=== PATIENT | female | born 1960 | race Caucasian/White ===

== ENCOUNTER → 2017-10-08 | Outpatient (POV) | payer BC, SELFPAY | PROVIDERS: Family Provider Family Medicine; PCP Family Medicine; Referring Provider Family Medicine; Visit Provider Nurse Anesthetist, Certified Registered | DX: M54.16 Radiculopathy, lumbar region (principal) | CPT/HCPCS: 99212 ==

== ENCOUNTER → 2018-01-07 15:23 | Outpatient (POV) | payer BC, SELFPAY ==
[2018-01-07 15:28] VITALS: BP 138/91; PULSE 77; RESP 20; O2SAT 95; BMI 42.3
--- NOTE | 2018-01-07 15:41 | HMH.PAINSOAP ---
[facility] Pain Management SOAP Note Subjective:: Patient is a pleasant 57-year-old white female who presents today for medication refills. We are treating her for chronic low back pain secondary to degenerative disc disease of the lumbar spine. Patient is doing well on her current medical regime. Patient states that today is her last day of work and she is now going into custodial. Since she has been off work somewhat for other reasons she has had less numbness tingling in her legs. She has quit taking her Lyrica due to memory problems. She rates her pain a 3 out of 10 today and states that she has no side effects patient's urine drug screens have been appropriate in the past. Patient's Rayna reviewed and appropriate Rayna #[id number]. Objective:: Physical Exam General: Alert and oriented x3, no acute distress, pleasant and cooperative, [on room air] Lungs: Resps E/U, Symmetrical chest expansion Musculoskeletal: Flexion and extension of lumbar spine somewhat guarded secondary to pain, deep tendon reflexes normal, strength in upper and lower extremities [5/5], normal gait noted Neurological: speech clear, account collector equal, no gross sensory deficits Assessment:: Degenerative disc disease of the lumbar spine, lumbar radiculopathy Plan:: We will refill the patient's medication today we will give her 2 prescriptions of oxycodone 20 mg 1 p.o. 5 times a day. I spoke with Dr. Lewis and Dr. Lewis has reviewed the chart and agrees. We will see this patient back in 3 months. Patient's Rayna #[id number] reviewed and appropriate. Patient's UDS appropriate in the past she will go for urine drug screen today. Patient has been prescribed a controlled substance after being counseled on the medication, medication safety, and possible side effects. RAYNA report has been obtained and reviewed prior to prescription and found to be appropriate. Opioid contract was reviewed and signed by the patient, and that they have agreed to all of the terms set forth by our compliance program. This note was dictated using voice recognition software and may include errors and omissions.
--- NOTE | 2018-01-07 15:46 | P.CONS_ITS ---
[facility] Pain Management SOAP Note Subjective:: Patient is a pleasant 57-year-old white female who presents today for medication refills. We are treating her for chronic low back pain secondary to degenerative disc disease of the lumbar spine. Patient is doing well on her current medical regime. Patient states that today is her last day of work and she is now going into fpc. Since she has been off work somewhat for other reasons she has had less numbness tingling in her legs. She has quit taking her Lyrica due to memory problems. She rates her pain a 3 out of 10 today and states that she has no side effects patient's urine drug screens have been appropriate in the past. Patient's Rayna reviewed and appropriate Rayna #[id number]. Objective:: Physical Exam General: Alert and oriented x3, no acute distress, pleasant and cooperative, [ on room air] Lungs: Resps E/U, Symmetrical chest expansion Musculoskeletal: Flexion and extension of lumbar spine somewhat guarded secondary to pain, deep tendon reflexes normal, strength in upper and lower extremities [5/5], normal gait noted Neurological: speech clear, catalogue librarian equal, no gross sensory deficits Assessment:: Degenerative disc disease of the lumbar spine, lumbar radiculopathy Plan:: We will refill the patient's medication today we will give her 2 prescriptions of oxycodone 20 mg 1 p.o. 5 times a day. I spoke with Dr. Lewis and Dr. Lewis has reviewed the chart and agrees. We will see this patient back in 3 months. Patient's Rayna #[id number] reviewed and appropriate. Patient's UDS appropriate in the past she will go for urine drug screen today. Patient has been prescribed a controlled substance after being counseled on the medication, medication safety, and possible side effects. RAYNA report has been obtained and reviewed prior to prescription and found to be appropriate. Opioid contract was reviewed and signed by the patient, and that they have agreed to all of the terms set forth by our compliance program. This note was dictated using voice recognition software and may include errors and omissions.
[2018-01-07 19:25] LABS: Amphetamine/Metha Screen,Urine Negative ng/mL (<1000); Barbiturates Screen,Urine Negative ng/mL (<200); Benzodiazepines Screen,Urine Negative ng/mL (200); Cannabinoid Screen,Urine Negative ng/mL (<50); Cocaine Screen,Urine Negative ng/g (<300); Methadone Screen,Urine Negative ng/mL (<300); Opiate Screen,Urine Positive ng/mL (<300); Phencyclidine Screen,Urine Negative ng/mL (<25)
[2018-01-15 17:12] LABS: Opiates Negative (Cutoff=100); Oxycodone (GC/MS) 3210 ng/mL (Cutoff=100)
[2018-01-16 06:36] LABS: Oxymorphone (GC/MS) 3540 ng/mL (Cutoff=100)
== END ==
PROVIDERS: Family Provider Family Medicine; PCP Family Medicine; Visit Provider Clinical Nurse Specialist Family Health
DX: M54.16 Radiculopathy, lumbar region (principal); Z79.899 Other long term (current) drug therapy
CPT/HCPCS: 99212; 80305; 80361; 80365; G0480

== ENCOUNTER → 2018-01-21 12:50 | Outpatient (POV) | payer BC, SELFPAY ==
[2018-01-21 12:59] VITALS: BP 175/95; PULSE 74; RESP 20; O2SAT 94; BMI 43.0
--- NOTE | 2018-01-21 13:16 | HMH.PAINSOAP ---
[facility] Pain Management SOAP Note Subjective:: Patient is a pleasant 57-year-old white female who presents today because of increased pain. Patient was previously on Lyrica for pain secondary to degenerative disc disease of the lumbar spine with lumbar radiculopathy. However she was having some memory problems with this medication and some oversedation. Patient would like to discuss alternatives because of the increased pain after stopping her Lyrica. Patient has not tried gabapentin before. Patient is currently also being medically managed with oxycodone 20 milligrams p.o. 5 times a day. Patient's Mika #[id number] reviewed and appropriate. Patient's UDS has been appropriate in the past. Patient rates her pain a 6 out of 10 today. Patient states her pain is achy in nature. She is also having some numbness and tingling. ROS General: no recent weight change, no fever, no sleep disturbances Respiratory: no cough, no shortness of air, no recurring pulmonary infections Cardiovascular/Peripheral Vascular: No chest pain, No palpitations, no edema, no shortness of breath. Gastrointestinal: no incontinence, normal bowel movements reported Genitourinary: no incontinence Musculoskeletal: Back pain, myofascial pain Psychiatric: normal mood/ affect, Neurological: [denies weakness in extremities], [denies balance issues] Objective:: Physical Exam General: Alert and oriented x3, no acute distress, pleasant and cooperative, [on room air] Lungs: Resps E/U, Symmetrical chest expansion, Eyes: PERRL Musculoskeletal: Flexion and extension of lumbar spine somewhat guarded secondary to pain, deep tendon reflexes normal, strength in upper and lower extremities [5/5], normal gait noted Neurological: speech clear, fretted instrument inspector equal, no gross sensory deficits Assessment:: Degenerative disc disease of the lumbar spine, lumbar radiculopathy, myofascial pain Plan:: We will start the patient on gabapentin 100 mg 1 p.o. every 8 at bedtime and gradually titrate her up to 3 times a day. I did discussion about the risks and the benefits with the patient the patient Kaspar #[id number] reviewed and appropriate. Dr. Lewis has reviewed this and agrees. We will follow-up with this patient at her next medication refill. If she is doing well with no side effects we will increase her gabapentin to 300 mg 1 p.o. 3 times daily. This note was dictated using recognition software and may contain errors or omissions
--- NOTE | 2018-01-21 13:20 | P.CONS_ITS ---
[facility] Pain Management SOAP Note Subjective:: Patient is a pleasant 57-year-old white female who presents today because of increased pain. Patient was previously on Lyrica for pain secondary to degenerative disc disease of the lumbar spine with lumbar radiculopathy. However she was having some memory problems with this medication and some oversedation. Patient would like to discuss alternatives because of the increased pain after stopping her Lyrica. Patient has not tried gabapentin before. Patient is currently also being medically managed with oxycodone 20 milligrams p.o. 5 times a day. Patient's Mika #[id number] reviewed and appropriate. Patient's UDS has been appropriate in the past. Patient rates her pain a 6 out of 10 today. Patient states her pain is achy in nature. She is also having some numbness and tingling. ROS General: no recent weight change, no fever, no sleep disturbances Respiratory: no cough, no shortness of air, no recurring pulmonary infections Cardiovascular/Peripheral Vascular: No chest pain, No palpitations, no edema, no shortness of breath. Gastrointestinal: no incontinence, normal bowel movements reported Genitourinary: no incontinence Musculoskeletal: Back pain, myofascial pain Psychiatric: normal mood/ affect, Neurological: [denies weakness in extremities], [denies balance issues] Objective:: Physical Exam General: Alert and oriented x3, no acute distress, pleasant and cooperative, [ on room air] Lungs: Resps E/U, Symmetrical chest expansion, Eyes: PERRL Musculoskeletal: Flexion and extension of lumbar spine somewhat guarded secondary to pain, deep tendon reflexes normal, strength in upper and lower extremities [5/5], normal gait noted Neurological: speech clear, pattern developer equal, no gross sensory deficits Assessment:: Degenerative disc disease of the lumbar spine, lumbar radiculopathy, myofascial pain Plan:: We will start the patient on gabapentin 100 mg 1 p.o. every 8 at bedtime and gradually titrate her up to 3 times a day. I did discussion about the risks and the benefits with the patient the patient Kaspar #[id number] reviewed and appropriate. Dr. Lewis has reviewed this and agrees. We will follow-up with this patient at her next medication refill. If she is doing well with no side effects we will increase her gabapentin to 300 mg 1 p.o. 3 times daily. This note was dictated using recognition software and may contain errors or omissions
--- NOTE | 2018-01-23 08:07 | PC.PHONENOTE ---
01/21/18-called in rx for Gabapentin 100mg TID with 2 refills to pt pharmacy
--- NOTE | 2018-03-05 13:15 | PC.PHONENOTE ---
03/01/18-Gabapentin 300mg TID with 2 refills called into pt's pharmacy
== END ==
PROVIDERS: Family Provider Family Medicine; PCP Family Medicine; Visit Provider Clinical Nurse Specialist Family Health
DX: M54.16 Radiculopathy, lumbar region (principal)
CPT/HCPCS: 99212

== ENCOUNTER → 2018-04-01 09:34 | Outpatient (POV) | payer BC, SELFPAY ==
[2018-04-01 09:50] VITALS: BP 158/99; PULSE 84; RESP 20; TEMP 36.6; O2SAT 98; BMI 43.0
--- NOTE | 2018-04-01 10:18 | HMH.PAINSOAP ---
[facility] Pain Management SOAP Note Subjective:: Patient is a pleasant 57-year-old white female who presents today for medication refills. Patient is doing well on her gabapentin 300 mg 1 p.o. 3 times daily. Patient also on oxycodone 20 mg 1 p.o. 5 times a day. Patient is interested in intrathecal therapy in the future. We did discuss this some. Patient states that her gabapentin is helping her however she needs a slight increase to help her sleep at night. Patient denies any flex the medication. Patient is also having some muscle spasms. She is taking Flexeril in the past with good relief of these. She rates her pain a 6 out of 10 today. Patient's RAYNA #[id number] reviewed and appropriate. ROS General: no recent weight change, no fever, no sleep disturbances Respiratory: no cough, no shortness of air, no recurring pulmonary infections Cardiovascular/Peripheral Vascular: No chest pain, No palpitations, no edema, no shortness of breath. Gastrointestinal: no incontinence, normal bowel movements reported Genitourinary: no incontinence Musculoskeletal: Back pain, bilateral leg pain Psychiatric: normal mood/ affect, [denies depression], [denies anxiety] Neurological: [denies weakness in extremities], [denies balance issues] Objective:: Physical Exam General: Alert and oriented x3, no acute distress, pleasant and cooperative, [on room air] Lungs: Resps E/U, Symmetrical chest expansion, Eyes: PERRL Musculoskeletal: Flexion and extension of lumbar spine somewhat guarded secondary to pain, deep tendon reflexes normal, strength in upper and lower extremities [5/5], slightly antalgic gait noted Neurological: speech clear, authorization nurse equal, no gross sensory deficits Assessment:: Degenerative disc disease of lumbar spine with lumbar radiculopathy and myofascial pain syndrome Plan:: We will start the patient on gabapentin 400 mg 1 p.o. 3 times daily. We will also refill her oxycodone 20 mg 1 p.o. 5 times a day. 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 Patient's Rayna and urine drug screen both appropriate. Dr. Lewis has reviewed this chart and agrees with this plan of care. We will follow-up with the patient in 3 months. Patient has been prescribed a controlled substance after being counseled on the medication, medication safety, and possible side effects. RAYNA report has been obtained and reviewed prior to prescription and found to be appropriate. Opioid contract was reviewed and signed by the patient, and that they have agreed to all of the terms set forth by our compliance program. This note was dictated using voice recognition software and may contain errors or omissions
--- NOTE | 2018-04-01 10:21 | P.CONS_ITS ---
[facility] Pain Management SOAP Note Subjective:: Patient is a pleasant 57-year-old white female who presents today for medication refills. Patient is doing well on her gabapentin 300 mg 1 p.o. 3 times daily. Patient also on oxycodone 20 mg 1 p.o. 5 times a day. Patient is interested in intrathecal therapy in the future. We did discuss this some. Patient states that her gabapentin is helping her however she needs a slight increase to help her sleep at night. Patient denies any flex the medication. Patient is also having some muscle spasms. She is taking Flexeril in the past with good relief of these. She rates her pain a 6 out of 10 today. Patient's RAYNA #[id number] reviewed and appropriate. ROS General: no recent weight change, no fever, no sleep disturbances Respiratory: no cough, no shortness of air, no recurring pulmonary infections Cardiovascular/Peripheral Vascular: No chest pain, No palpitations, no edema, no shortness of breath. Gastrointestinal: no incontinence, normal bowel movements reported Genitourinary: no incontinence Musculoskeletal: Back pain, bilateral leg pain Psychiatric: normal mood/ affect, [denies depression], [denies anxiety] Neurological: [denies weakness in extremities], [denies balance issues] Objective:: Physical Exam General: Alert and oriented x3, no acute distress, pleasant and cooperative, [ on room air] Lungs: Resps E/U, Symmetrical chest expansion, Eyes: PERRL Musculoskeletal: Flexion and extension of lumbar spine somewhat guarded secondary to pain, deep tendon reflexes normal, strength in upper and lower extremities [5/5], slightly antalgic gait noted Neurological: speech clear, hollow handle bench worker equal, no gross sensory deficits Assessment:: Degenerative disc disease of lumbar spine with lumbar radiculopathy and myofascial pain syndrome Plan:: We will start the patient on gabapentin 400 mg 1 p.o. 3 times daily. We will also refill her oxycodone 20 mg 1 p.o. 5 times a day. 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 Patient's Rayna and urine drug screen both appropriate. Dr. Lewis has reviewed this chart and agrees with this plan of care. We will follow-up with the patient in 3 months. Patient has been prescribed a controlled substance after being counseled on the medication, medication safety, and possible side effects. RAYNA report has been obtained and reviewed prior to prescription and found to be appropriate. Opioid contract was reviewed and signed by the patient, and that they have agreed to all of the terms set forth by our compliance program. This note was dictated using voice recognition software and may contain errors or omissions
--- NOTE | 2018-04-01 16:13 | PC.PHONENOTE ---
called in Rx for Flexeril 10mg TID with 2 refills and Gabapentin 400mg TID with 2 refills.
== END ==
PROVIDERS: Family Provider Family Medicine; PCP Family Medicine; Visit Provider Clinical Nurse Specialist Family Health
DX: M54.16 Radiculopathy, lumbar region (principal); M79.1 Myalgia
CPT/HCPCS: 99212

== ENCOUNTER → 2018-07-01 09:47 | Outpatient (POV) | payer BC, SELFPAY ==
[2018-07-01 10:25] VITALS: BP 130/68; PULSE 75; RESP 18; O2SAT 98; BMI 44.4
--- NOTE | 2018-07-01 12:28 | HMH.PAINSOAP ---
[facility] Pain Management SOAP Note Subjective:: Patient is a pleasant 57-year-old white female who presents today for medication refills. Patient is currently being medically managed with oxycodone 20 mg 1 p.o. 5 times a day along with gabapentin 400 mg 1 p.o. 3 times daily. Increase her gabapentin last visit and she stated that this was beneficial. She rates her pain today a 5 out of 10. Patient's RAYNA #[id number] reviewed and appropriate. He denies side effects or medications. ROS General: no recent weight change, no fever, no sleep disturbances Respiratory: no cough, no shortness of air, no recurring pulmonary infections Cardiovascular/Peripheral Vascular: No chest pain, No palpitations, no edema, no shortness of breath. Gastrointestinal: no incontinence, normal bowel movements reported Genitourinary: no incontinence Musculoskeletal: Back pain, leg pain Psychiatric: normal mood/ affect Neurological: [denies weakness in extremities], [denies balance issues] Objective:: Physical Exam General: Alert and oriented x3, no acute distress, pleasant and cooperative, [on room air] Lungs: Resps E/U, Symmetrical chest expansion, Eyes: PERRL Musculoskeletal: Flexion and extension of lumbar spine somewhat guarded secondary to pain, deep tendon reflexes normal, strength in upper and lower extremities [5/5], slightly antalgic gait noted Neurological: speech clear, gluing machine adjuster equal, no gross sensory deficits Assessment:: degenerative disc disease lumbar spine with lumbar radiculopathy and myofascial pain syndrome Plan:: We will increase the patient's gabapentin to 600 mg 2 tabs daily. We will also refill her oxycodone 10 mg 1 p.o. 5 times a day. We will give her 2 months worth of prescriptions. 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 Patient's Rayna and urine drug screen are both appropriate. Dr. Lewis is reviewed this chart and agrees with this plan of care. We will follow-up with the patient in 3 months and that time patient would like to start a psych eval in order to discuss potentially intrathecal therapy in the future. Patient has been prescribed a controlled substance after being counseled on the medication, medication safety, and possible side effects. RAYNA report has been obtained and reviewed prior to prescription and found to be appropriate. Opioid contract was reviewed and signed by the patient, and that they have agreed to all of the terms set forth by our compliance program. This note was dictated using voice recognition software and may contain errors or omissions
--- NOTE | 2018-07-01 12:32 | P.CONS_ITS ---
[facility] Pain Management SOAP Note Subjective:: Patient is a pleasant 57-year-old white female who presents today for medication refills. Patient is currently being medically managed with oxycodone 20 mg 1 p.o. 5 times a day along with gabapentin 400 mg 1 p.o. 3 times daily. Increase her gabapentin last visit and she stated that this was beneficial. She rates her pain today a 5 out of 10. Patient's RAYNA # [id number] reviewed and appropriate. He denies side effects or medications. ROS General: no recent weight change, no fever, no sleep disturbances Respiratory: no cough, no shortness of air, no recurring pulmonary infections Cardiovascular/Peripheral Vascular: No chest pain, No palpitations, no edema, no shortness of breath. Gastrointestinal: no incontinence, normal bowel movements reported Genitourinary: no incontinence Musculoskeletal: Back pain, leg pain Psychiatric: normal mood/ affect Neurological: [denies weakness in extremities], [denies balance issues] Objective:: Physical Exam General: Alert and oriented x3, no acute distress, pleasant and cooperative, [ on room air] Lungs: Resps E/U, Symmetrical chest expansion, Eyes: PERRL Musculoskeletal: Flexion and extension of lumbar spine somewhat guarded secondary to pain, deep tendon reflexes normal, strength in upper and lower extremities [5/5], slightly antalgic gait noted Neurological: speech clear, dump grader equal, no gross sensory deficits Assessment:: degenerative disc disease lumbar spine with lumbar radiculopathy and myofascial pain syndrome Plan:: We will increase the patient's gabapentin to 600 mg 2 tabs daily. We will also refill her oxycodone 10 mg 1 p.o. 5 times a day. We will give her 2 months worth of prescriptions. 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 Patient's Rayna and urine drug screen are both appropriate. Dr. Lewis is reviewed this chart and agrees with this plan of care. We will follow-up with the patient in 3 months and that time patient would like to start a psych eval in order to discuss potentially intrathecal therapy in the future. Patient has been prescribed a controlled substance after being counseled on the medication, medication safety, and possible side effects. RAYNA report has been obtained and reviewed prior to prescription and found to be appropriate. Opioid contract was reviewed and signed by the patient, and that they have agreed to all of the terms set forth by our compliance program. This note was dictated using voice recognition software and may contain errors or omissions
[2018-07-01 13:00] LABS: Amphetamine/Metha Screen,Urine Negative ng/mL (<1000); Barbiturates Screen,Urine Negative ng/mL (<200); Benzodiazepines Screen,Urine Negative ng/mL (<200); Cannabinoid Screen,Urine Negative ng/mL (<50); Cocaine Screen,Urine Negative ng/mL (<300); Methadone Screen,Urine Negative ng/mL (<300); Opiate Screen,Urine Positive ng/mL (<300); Phencyclidine Screen,Urine Negative ng/mL (<25)
[2018-07-07 19:07] LABS: Oxycodone (GC/MS) 2438 ng/mL (Cutoff=100)
[2018-07-08 05:31] LABS: Opiates Negative (Cutoff=100); Oxymorphone (GC/MS) 2372 ng/mL (Cutoff=100)
== END ==
PROVIDERS: Family Provider Family Medicine; PCP Family Medicine; Visit Provider Clinical Nurse Specialist Family Health
DX: M79.1 Myalgia (principal); M54.16 Radiculopathy, lumbar region; Z79.899 Other long term (current) drug therapy
CPT/HCPCS: 80305; 80361; 80365; 99212; G0480

== ENCOUNTER → 2018-09-30 09:16 | Outpatient (POV) | payer BC, SELFPAY ==
--- NOTE | 2018-09-30 09:35 | HMH.PAINSOAP ---
[facility] Pain Management SOAP Note Subjective:: Patient is a pleasant 58-year-old white female who presents today for follow-up and medication refills. Patient is currently being medically managed with oxycodone 20 mg 1 p.o. 5 times a day along with gabapentin 400 mg 1 p.o. 3 times daily. Patient states that she is doing well and rates her pain a 2 out of 10. Patient's RAYNA #[id number] reviewed and appropriate. Patient would like to be seen by Dr. Richards for her psychological evaluation to determine if she is a candidate for intrathecal therapy. Patient denies side effects or medication. ROS General: no recent weight change, no fever, no sleep disturbances Respiratory: no cough, no shortness of air, no recurring pulmonary infections Cardiovascular/Peripheral Vascular: No chest pain, No palpitations, no edema, no shortness of breath. Gastrointestinal: no incontinence, normal bowel movements reported Genitourinary: no incontinence Musculoskeletal: Back pain, leg pain Psychiatric: normal mood/ affect Neurological: [denies weakness in extremities], [denies balance issues] Objective:: Physical Exam General: Alert and oriented x3, no acute distress, pleasant and cooperative, [on room air] Lungs: Resps E/U, Symmetrical chest expansion, Eyes: PERRL Musculoskeletal: Flexion and extension of lumbar spine somewhat guarded secondary to pain, deep tendon reflexes normal, strength in upper and lower extremities [5/5], slightly antalgic gait noted Neurological: speech clear, product merchandiser equal, no gross sensory deficits Assessment:: Degenerative disc disease lumbar spine with lumbar radiculopathy and myofascial pain syndrome Plan:: We will refill the patient's gabapentin 600 mg 1 tab p.o. twice daily and her oxycodone 20 mg 1 p.o. 5 times a day. We will give her 2 months worth of prescriptions. We will see her back in 2 months and reassess her symptoms at that time. Patient is doing well. Patient's Rayna and urine drug screen reviewed. Dr. Lewis is reviewed this chart and agrees with this plan of care. Patient has been prescribed a controlled substance after being counseled on the medication, medication safety, and possible side effects. RAYNA report has been obtained and reviewed prior to prescription and found to be appropriate. Opioid contract was reviewed and signed by the patient, and that they have agreed to all of the terms set forth by our compliance program. This note was dictated using voice recognition software and may contain errors or omissions
--- NOTE | 2018-09-30 09:38 | P.CONS_ITS ---
[facility] Pain Management SOAP Note Subjective:: Patient is a pleasant 58-year-old white female who presents today for follow-up and medication refills. Patient is currently being medically managed with oxycodone 20 mg 1 p.o. 5 times a day along with gabapentin 400 mg 1 p.o. 3 times daily. Patient states that she is doing well and rates her pain a 2 out of 10. Patient's RAYNA #[id number] reviewed and appropriate. Patient would like to be seen by Dr. Richards for her psychological evaluation to determine if she is a candidate for intrathecal therapy. Patient denies side effects or medication. ROS General: no recent weight change, no fever, no sleep disturbances Respiratory: no cough, no shortness of air, no recurring pulmonary infections Cardiovascular/Peripheral Vascular: No chest pain, No palpitations, no edema, no shortness of breath. Gastrointestinal: no incontinence, normal bowel movements reported Genitourinary: no incontinence Musculoskeletal: Back pain, leg pain Psychiatric: normal mood/ affect Neurological: [denies weakness in extremities], [denies balance issues] Objective:: Physical Exam General: Alert and oriented x3, no acute distress, pleasant and cooperative, [on room air] Lungs: Resps E/U, Symmetrical chest expansion, Eyes: PERRL Musculoskeletal: Flexion and extension of lumbar spine somewhat guarded secondary to pain, deep tendon reflexes normal, strength in upper and lower extremities [5/5], slightly antalgic gait noted Neurological: speech clear, assistant portfolio manager equal, no gross sensory deficits Assessment:: Degenerative disc disease lumbar spine with lumbar radiculopathy and myofascial pain syndrome Plan:: We will refill the patient's gabapentin 600 mg 1 tab p.o. twice daily and her oxycodone 20 mg 1 p.o. 5 times a day. We will give her 2 months worth of prescriptions. We will see her back in 2 months and reassess her symptoms at that time. Patient is doing well. Patient's Rayna and urine drug screen reviewed. Dr. Lewis is reviewed this chart and agrees with this plan of care. Patient has been prescribed a controlled substance after being counseled on the medication, medication safety, and possible side effects. RAYNA report has been obtained and reviewed prior to prescription and found to be appropriate. Opioid contract was reviewed and signed by the patient, and that they have agreed to all of the terms set forth by our compliance program. This note was dictated using voice recognition software and may contain errors or omissions
[2018-09-30 10:04] VITALS: BP 138/78; PULSE 82; RESP 18; O2SAT 95; BMI 43.8
== END ==
PROVIDERS: Visit Provider Clinical Nurse Specialist Family Health
DX: M51.16 Intervertebral disc disorders with radiculopathy, lumbar region (principal); M79.18 Myalgia, other site
CPT/HCPCS: 99213

== ENCOUNTER → 2018-11-11 10:45 | Outpatient (POV) | payer BC, SELFPAY ==
[2018-11-11 10:59] VITALS: BP 134/74; PULSE 89; RESP 18; O2SAT 99; BMI 43.8
--- NOTE | 2018-11-11 12:12 | P.CONS_ITS ---
[facility] Pain Management SOAP Note Subjective:: Patient is a pleasant 58-year-old white female who presents today for follow-up and medication refills. She is currently being medically managed with oxycodone 21 p.o. 5 times a day. She is also on gabapentin 600 mg 1 p.o. 3 times daily. Patient denies side effects. Patient is a good psychological candidate for intrathecal pain pump. Patient will be going away for the holidays we will begin her weaning process when she gets back. She rates her pain a 5 out of 10 today. ROS General: no recent weight change, no fever, no sleep disturbances Respiratory: no cough, no shortness of air, no recurring pulmonary infections Cardiovascular/Peripheral Vascular: No chest pain, No palpitations, no edema, no shortness of breath. Gastrointestinal: no incontinence, normal bowel movements reported Genitourinary: no incontinence Musculoskeletal: Back pain, leg pain Psychiatric: normal mood/ affect Neurological: [denies weakness in extremities], [denies balance issues] Objective:: Physical Exam General: Alert and oriented x3, no acute distress, pleasant and cooperative, [on room air] Lungs: Resps E/U, Symmetrical chest expansion, Eyes: PERRL Musculoskeletal: Flexion and extension of lumbar spine somewhat guarded secondary to pain, deep tendon reflexes normal, strength in upper and lower extremities [5/5], slightly antalgic gait noted Neurological: speech clear, physician assistant certified equal, no gross sensory deficits Assessment:: Degenerative disc disease lumbar spine with lumbar radiculopathy Plan:: We will refill her oxycodone 20 mg 1 p.o. 5 times a day and gabapentin 600 mg 1 p.o. 3 times daily. We will give her 2 months worth of prescriptions and see her back in 3 months and reassess her symptoms at that time. We will then begin to discuss a weaning process so she can move forward with her intrathecal pain pump trial. Dr. Lewis has reviewed this chart and agrees with this plan of care. Patient has been prescribed a controlled substance after being counseled on the medication, medication safety, and possible side effects. RAYNA report has been obtained and reviewed prior to prescription and found to be appropriate. Opioid contract was reviewed and signed by the patient, and that they have agreed to all of the terms set forth by our compliance program. This note was dictated using voice recognition software and may contain errors or omissions
[2018-11-11 12:36] LABS: Amphetamine/Metha Screen,Urine Negative ng/mL (<1000); Barbiturates Screen,Urine Negative ng/mL (<200); Benzodiazepines Screen,Urine Negative ng/mL (<200); Cannabinoid Screen,Urine Negative ng/mL (<50); Cocaine Screen,Urine Negative ng/mL (<300); Methadone Screen,Urine Negative ng/mL (<300); Opiate Screen,Urine Positive ng/mL (<300); Phencyclidine Screen,Urine Negative ng/mL (<25)
[2018-11-16 17:12] LABS: Oxycodone (GC/MS) >3000 ng/mL (Cutoff=100)
[2018-11-17 21:27] LABS: Opiates Negative (Cutoff=100); Oxymorphone (GC/MS) >3000 ng/mL (Cutoff=100)
== END ==
PROVIDERS: PCP Family Medicine; Visit Provider Clinical Nurse Specialist Family Health
DX: M51.16 Intervertebral disc disorders with radiculopathy, lumbar region (principal); Z79.899 Other long term (current) drug therapy
CPT/HCPCS: 80305; 80361; 80365; 99213; G0480

== ENCOUNTER → 2019-02-24 10:33 | Outpatient (POV) | payer BC, SELFPAY ==
--- NOTE | 2019-02-24 11:05 | HMH.PAINSOAP ---
[facility] Pain Management SOAP Note Subjective:: Patient is a pleasant 58-year-old white female who presents today for follow-up and medication refills. She is currently being medically managed with oxycodone 20 mg 1 p.o. 5 times a day. And gabapentin 600 mg 1 p.o. 3 times daily. She denies side effects. She rates her pain a 4 out of 10. Patient is working towards intrathecal pain pump she has been weaning herself off of her medication. She takes between 3 and 5 a day. We have a long discussion in regards to continuing weaning. ROS General: no recent weight change, no fever, no sleep disturbances Respiratory: no cough, no shortness of air, no recurring pulmonary infections Cardiovascular/Peripheral Vascular: No chest pain, No palpitations, no edema, no shortness of breath. Gastrointestinal: no incontinence, normal bowel movements reported Genitourinary: no incontinence Musculoskeletal: Back pain, leg pain Psychiatric: normal mood/ affect Neurological: [denies weakness in extremities], [denies balance issues] Objective:: Physical Exam General: Alert and oriented x3, no acute distress, pleasant and cooperative, [on room air] Lungs: Resps E/U, Symmetrical chest expansion, Eyes: PERRL Musculoskeletal: Flexion and extension of lumbar spine somewhat guarded secondary to pain, deep tendon reflexes normal, strength in upper and lower extremities [5/5], [abnormal gait noted] Neurological: speech clear, can filling machine operator equal, no gross sensory deficits Assessment:: Degenerative disc disease lumbar spine with lumbar radiculopathy Plan:: We will refill her oxycodone 20 mg 1 p.o. 5 times a day and gabapentin 600 mg 1 p.o. 3 times daily we will give her 2 months worth of prescriptions we will see her back in 2 months and reassess her symptoms at that time she is going to try to cut down on her medication and we are going to move forward from that. Patient understands she has to be off all narcotic medication 48 hours prior to her intrathecal pain pump trial. Patient has been prescribed a controlled substance after being counseled on the medication, medication safety, and possible side effects. RAYNA report has been obtained and reviewed prior to prescription and found to be appropriate. Opioid contract was reviewed and signed by the patient, and that they have agreed to all of the terms set forth by our compliance program. Dr. Bux has reviewed this note and agrees with this plan of care. This note was dictated using voice recognition software and may contain errors or omissions
[2019-02-24 13:27] VITALS: BP 146/82; PULSE 83; RESP 18; O2SAT 98; BMI 37.1
== END ==
PROVIDERS: PCP Family Medicine; Visit Provider Clinical Nurse Specialist Family Health
DX: M51.16 Intervertebral disc disorders with radiculopathy, lumbar region (principal)
CPT/HCPCS: 99213

== ENCOUNTER → 2019-04-22 11:06 | Outpatient (POV) | payer BC, SELFPAY ==
[2019-04-22 11:28] VITALS: BP 145/84; PULSE 102; RESP 18; O2SAT 98; BMI 44.3
--- NOTE | 2019-04-22 12:36 | HMH.PAINSOAP ---
[facility] Pain Management SOAP Note Subjective:: Patient is a pleasant 58-year-old white female who presents today for medication refills. She is currently being medically managed with oxycodone 20 mg 1 p.o. 5 times a day she is trying to wean down. She states she is taking 3-4 a day. Patient would like to continue being prescribed this dose and continue to wean over her summer holiday. Patient and I had a long discussion in regards to ways to handle any kind of withdrawal symptoms and to mentally prepare for this. She rates her pain today at 3 out of 10. ROS General: no recent weight change, no fever, no sleep disturbances Respiratory: no cough, no shortness of air, no recurring pulmonary infections Cardiovascular/Peripheral Vascular: No chest pain, No palpitations, no edema, no shortness of breath. Gastrointestinal: no incontinence, normal bowel movements reported Genitourinary: no incontinence Musculoskeletal: Back pain, leg pain Psychiatric: normal mood/ affect Neurological: [denies weakness in extremities], [denies balance issues] Objective:: Physical Exam General: Alert and oriented x3, no acute distress, pleasant and cooperative, [on room air] Lungs: Resps E/U, Symmetrical chest expansion, Eyes: PERRL Musculoskeletal: Flexion and extension of lumbar spine somewhat guarded secondary to pain, deep tendon reflexes normal, strength in upper and lower extremities [5/5], slightly antalgic gait noted Neurological: speech clear, magento web developer equal, no gross sensory deficits Assessment:: Degenerative disc disease lumbar spine with lumbar radiculopathy Plan:: We will refill the patient's 20 mg 1 p.o. 5 times a day and gabapentin 600 mg 1 p.o. 3 times daily we will give her 2 months worth of prescriptions and see her back in 2 months. We will reassess her symptoms at that time she is going to try to continue to wean off of her medication. Patient I will have a discussion in regards to this at her next visit. Patient has been prescribed a controlled substance after being counseled on the medication, medication safety, and possible side effects. RAYNA report has been obtained and reviewed prior to prescription and found to be appropriate. Opioid contract was reviewed and signed by the patient, and that they have agreed to all of the terms set forth by our compliance program. Dr. Lewis has reviewed this note and agrees with this plan of care. This note was dictated using voice recognition software and may contain errors or omissions
--- NOTE | 2019-04-22 12:40 | P.CONS_ITS ---
[facility] Pain Management SOAP Note Subjective:: Patient is a pleasant 58-year-old white female who presents today for medication refills. She is currently being medically managed with oxycodone 20 mg 1 p.o. 5 times a day she is trying to wean down. She states she is taking 3-4 a day. Patient would like to continue being prescribed this dose and continue to wean over her summer holiday. Patient and I had a long discussion in regards to ways to handle any kind of withdrawal symptoms and to mentally prepare for this. She rates her pain today at 3 out of 10. ROS General: no recent weight change, no fever, no sleep disturbances Respiratory: no cough, no shortness of air, no recurring pulmonary infections Cardiovascular/Peripheral Vascular: No chest pain, No palpitations, no edema, no shortness of breath. Gastrointestinal: no incontinence, normal bowel movements reported Genitourinary: no incontinence Musculoskeletal: Back pain, leg pain Psychiatric: normal mood/ affect Neurological: [denies weakness in extremities], [denies balance issues] Objective:: Physical Exam General: Alert and oriented x3, no acute distress, pleasant and cooperative, [on room air] Lungs: Resps E/U, Symmetrical chest expansion, Eyes: PERRL Musculoskeletal: Flexion and extension of lumbar spine somewhat guarded se condary to pain, deep tendon reflexes normal, strength in upper and lower extremities [5/5], slightly antalgic gait noted Neurological: speech clear, insurance advisor equal, no gross sensory deficits Assessment:: Degenerative disc disease lumbar spine with lumbar radiculopathy Plan:: We will refill the patient's 20 mg 1 p.o. 5 times a day and gabapentin 600 mg 1 p.o. 3 times daily we will give her 2 months worth of prescriptions and see her back in 2 months. We will reassess her symptoms at that time she is going to try to continue to wean off of her medication. Patient I will have a discussion in regards to this at her next visit. Patient has been prescribed a controlled substance after being counseled on the medication, medication safety, and possible side effects. RAYNA report has been obtained and reviewed prior to prescription and found to be appropriate. Opioid contract was reviewed and signed by the patient, and that they have agreed to all of the terms set forth by our compliance program. Dr. Lewis has reviewed this note and agrees with this plan of care. This note was dictated using voice recognition software and may contain errors or omissions
[2019-04-22 13:08] LABS: Amphetamine/Metha Screen,Urine Negative ng/mL (<1000); Barbiturates Screen,Urine Negative ng/mL (<200); Benzodiazepines Screen,Urine Negative ng/mL (<200); Cannabinoid Screen,Urine Negative ng/mL (<50); Cocaine Screen,Urine Negative ng/mL (<300); Methadone Screen,Urine Negative ng/mL (<300); Opiate Screen,Urine Positive ng/mL (<300); Phencyclidine Screen,Urine Negative ng/mL (<25)
[2019-04-27 12:07] LABS: Oxycodone (GC/MS) >3000 ng/mL (Cutoff=100)
[2019-04-27 17:08] LABS: Opiates Negative (Cutoff=100); Oxymorphone (GC/MS) >3000 ng/mL (Cutoff=100)
== END ==
PROVIDERS: PCP Family Medicine; Visit Provider Clinical Nurse Specialist Family Health
DX: M51.16 Intervertebral disc disorders with radiculopathy, lumbar region (principal); Z79.899 Other long term (current) drug therapy
CPT/HCPCS: 80305; 80361; 80365; 99212; G0480

== ENCOUNTER → 2019-08-05 08:57 | Outpatient (POV) | payer BC, SELFPAY ==
[2019-08-05 09:07] VITALS: BP 149/98; PULSE 81; RESP 18; O2SAT 98; BMI 45.6
--- NOTE | 2019-08-05 12:32 | HMH.PAINSOAP ---
[facility] Pain Management SOAP Note Subjective:: Patient is a very pleasant 58-year-old white female who presents today for medication refills. She is currently being medically managed with oxycodone 20 mg 1 p.o. 5 times a day. She is trying to wean down she takes about 3-4 a day however recently she has had more pain with her trip to [place]. Patient rates her pain a 2 out of 10 today. She denies side effects or medications. Rayna #[id number] reviewed and appropriate. Urine drug screens have been appropriate. ROS General: no recent weight change, no fever, no sleep disturbances Respiratory: no cough, no shortness of air, no recurring pulmonary infections Cardiovascular/Peripheral Vascular: No chest pain, No palpitations, no edema, no shortness of breath. Gastrointestinal: no incontinence, normal bowel movements reported Genitourinary: no incontinence Musculoskeletal: Back pain, leg pain Psychiatric: normal mood/ affect, [denies depression], [denies anxiety] Neurological: [denies weakness in extremities], [denies balance issues] Objective:: Physical Exam General: Alert and oriented x3, no acute distress, pleasant and cooperative, [on room air] Lungs: Resps E/U, Symmetrical chest expansion, [CTA bilateral] Eyes: PERRL Musculoskeletal: Flexion and extension of lumbar spine somewhat guarded secondary to pain, deep tendon reflexes normal, strength in upper and lower extremities [5/5], slightly antalgic gait noted Neurological: speech clear, admin dir equal, no gross sensory deficits Assessment:: Degenerative disc disease lumbar spine with lumbar radiculopathy Plan:: We will refill the patient's oxycodone 20 mg 1 tab p.o. 5 times a day and gabapentin 600 mg 1 p.o. 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 She is been instructed to call the office if she has any issues prior to her next appointment. Patient has been prescribed a controlled substance after being counseled on the medication, medication safety, and possible side effects. RAYNA report has been obtained and reviewed prior to prescription and found to be appropriate. Opioid contract was reviewed and signed by the patient, and that they have agreed to all of the terms set forth by our compliance program. Dr. Lewis has reviewed this note and agrees with this plan of care. This note was dictated using voice recognition software and may contain errors or omissions Pain Management Hx Components *Have you ever received a pneumonia vaccine?: No *Have you received a flu vaccine this season?: No - *Social History *Occupational Status:: other *Travel in the last 8 weeks: None
--- NOTE | 2019-08-12 15:05 | PC.NURSE ---
gabapentin 600mg po tid with 1 refill faxed to clinic pharmacy per provider
== END ==
PROVIDERS: PCP Family Medicine; Visit Provider Clinical Nurse Specialist Family Health
DX: M51.16 Intervertebral disc disorders with radiculopathy, lumbar region (principal)
CPT/HCPCS: 99212

== ENCOUNTER → 2019-08-27 14:46 | Outpatient (CLI) | payer BC, SELFPAY ==
[2019-08-27 17:00] LABS: Amphetamine/Metha Screen,Urine Negative ng/mL (<1000); Barbiturates Screen,Urine Negative ng/mL (<200); Benzodiazepines Screen,Urine Negative ng/mL (<200); Cannabinoid Screen,Urine Negative ng/mL (<50); Cocaine Screen,Urine Negative ng/mL (<300); Methadone Screen,Urine Negative ng/mL (<300); Opiate Screen,Urine Positive ng/mL (<300); Phencyclidine Screen,Urine Negative ng/mL (<25)
[2019-09-01 22:16] LABS: Oxycodone (GC/MS) >3000 ng/mL (Cutoff=100)
[2019-09-02 07:13] LABS: Opiates Negative (Cutoff=100); Oxymorphone (GC/MS) 2997 ng/mL (Cutoff=100)
== END ==
PROVIDERS: Visit Provider Clinical Nurse Specialist Family Health
DX: Z79.899 Other long term (current) drug therapy (principal)
CPT/HCPCS: 80305; 80361; 80365; G0480

== ENCOUNTER → 2019-11-20 09:02 | Outpatient (POV) | payer BC, SELFPAY ==
[2019-11-20 09:12] VITALS: BP 132/74; PULSE 85; RESP 18; O2SAT 99; BMI 43.0
--- NOTE | 2019-11-20 10:16 | P.CONS_ITS ---
[facility] Pain Management SOAP Note Subjective:: Patient is a pleasant 59-year-old white female who presents today for medication refills. She is being treated for low back pain with lumbar radiculopathy symptoms. Patient is currently managed with oxycodone 20 mg 1 tablet p.o. 5 times daily, as well as gabapentin 600 mg 1 tablet p.o. 3 times daily. She denies any side effects to her medications. Patient's Rayna #[id number] has been reviewed and is appropriate. Her urine drug screens have been appropriate. She denies any side effects to the medications. She says she gets approximately 80% with her relief medication regimen. She is continuing with anti-inflammatories and a home stretching program. The patient is requesting to get her medications filled early. 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 Also asking for Flexeril 10 mg 1 tablet p.o. 3 times daily. Patient says that she intermittently takes muscle relaxers. Review of Systems General: No recent weight changes, no fever, no sleep disturbances Respiratory: No cough, no shortness of air, no recurring pulmonary infections Cardiovascular/peripheral vascular: No chest pain, no palpitations, no edema, no shortness of breath Gastrointestinal: No new onset incontinence, normal bowel movements reported Genitourinary: No new onset incontinence Musculoskeletal: Low back pain Psychiatric: Normal mood/affect Neurological: [Denies weakness in extremities], [denies balance issues] Objective:: Physical exam General: Alert and oriented x3, no acute distress, pleasant and cooperative, [on room air] Lungs: Respirations even and unlabored, symmetrical chest expansion Eyes: PERRL Musculoskeletal: Flexion and extension of lumbar spine somewhat guarded secondary to pain, deep tendon reflexes normal, strength in upper and lower extremities [5/5], [abnormal gait noted] Neurological: Speech clear, service developer equal, no gross sensory deficit Assessment:: Degenerative disc disease lumbar spine with lumbar radiculopathy symptoms Plan:: Patient can plan to picked edge sewing machine 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 We will have her oxycodone 20 mg 1 tablet p.o. 5 times daily, gabapentin 600 mg 1 tablet p.o. 3 times daily, as well as Flexeril 10 mg 1 tablet p.o. 3 times daily. We will see her back in the clinic in 3 months to reassess her symptoms. Patient has been instructed to contact the clinic if she has any concerns before her next appointment. Dr. Lewis has reviewed this note and agrees with this plan of care. This note was dictated using voice recognition software and make contain errors or omissions. Patient has been prescribed a controlled substance after being counseled on the medication, medication safety, and possible side effects. RAYNA report has been obtained and reviewed prior to prescription and found to be appropriate. Opioid contract was reviewed and signed by the patient, and that they have agreed to all of the terms set forth by our compliance program. [facility] History I have reviewed the patient's past medical history: Yes *Have you ever received a pneumonia vaccine?: Yes *Have you received a flu vaccine this season?: Yes - *Social History *Occupational Status:: other *Travel in the last 8 weeks: None Family Hx:: Unable to obtain
== END ==
PROVIDERS: PCP Family Medicine; Visit Provider Clinical Nurse Specialist Family Health
DX: M51.16 Intervertebral disc disorders with radiculopathy, lumbar region (principal)
CPT/HCPCS: 99212

== ENCOUNTER → 2020-03-15 10:46 | Outpatient (POV) | payer BC, SELFPAY ==
--- NOTE | 2020-03-15 11:21 | HMH.VVPMSO ---
[facility] PM Virtual Visit SOAP Consent for virtual visit:: With the recent concerns about the COVID-19, we are trying to minimize exposure to you by shifting to telehealth appointments whenever possible. It restricts me from seeing you in person, but the trade off is protecting you during this pandemic. Can you see and hear me okay, and do you consent to this option? If not, I would be happy to see if we can reschedule your appointment in the future, when feasible. Has patient consented to this virtual visit?: Yes Subjective:: Patient is a pleasant 59-year-old white female who presents today for medication refills. She is being treated for low back pain with lumbar radiculopathy symptoms. She is currently managed with oxycodone 20 mg 1 tab p.o. 5 times a day as well as gabapentin 6 mg 1 p.o. 3 times daily. She denies side effects from medication. [facility] #[id number] reviewed and appropriate. Urine drug screens are appropriate. She states that it is not as beneficial as it used to be. She does take Flexeril at times. ROS General: no recent weight change, no fever, no sleep disturbances Respiratory: no cough, no shortness of air, no recurring pulmonary infections Cardiovascular/Peripheral Vascular: No chest pain, No palpitations, no edema, no shortness of breath. Gastrointestinal: no new onset incontinence, normal bowel movements reported Genitourinary: no new onset incontinence Musculoskeletal: Back pain, leg pain Psychiatric: normal mood/ affect Neurological: [denies new onset weakness in extremities], [denies new onset balance issues] Objective:: Physical exam: Constitutional: Healthy appearing, well-developed, alert, in no acute distress Psychiatric: Judgment and insight intact, Alert and oriented x4 Mood and affect: Mood normal, affect appropriate Head and face: Inspection: Normocephalic atraumatic, extraocular movement intact Respiratory: Breathing nonlabored, nondyspneic Cardiovascular: No cyanosis, clubbing, or edema observed Skin: Head and neck: Skin with no lesions or rash observed Gait: Able to walk without assistive device: Able to heel and toe walk Neurologic: Sensation grossly intact per patient Musculoskeletal: She has decreased range of motion of lumbar spine noted on the video conference. Assessment:: Degenerative disc disease lumbar spine with lumbar radiculopathy Plan:: We will refill her oxycodone 20 mg 1 tab by mouth 5 times a day and gabapentin 60 mg 1 p.o. 3 times daily we will see the patient back in 2 months reassess her symptoms that time she is been instructed to call the office if she has any issues prior to her next appointment. This encounter was performed as a telemedicine visit via secure 2 way video and audio to minimize risk and transmission of Covid-19. The patient and we understand the limitations of a telemedicine visit including inability to check reflexes, possibly missing subtle findings on physical exam. Alternative options were presented to the patient and the patient elected to proceed with the visit. We specifically discussed risk factors for Covid-19 including age, heart or lung disease, diabetes, immunosuppression and travel. We also discussed that NSAIDs may worsen Covid-19 infection symptoms and that they should not be used to treat Covid-19 symptoms. Patient was also informed that corticosteroids in any form oral or injectable will decrease immune response and may increase risk of Covid-[address] Lewis has reviewed this patient's chart and this note and agrees with plan of care. Patient has been instructed to call the office if they have any issues prior to the next appointment. Patient has been prescribed a controlled substance after being counseled on the medication, medication safety, and possible side effects. RAYNA report has been obtained and reviewed prior to prescription and found to be appropriate. Opioid contract was reviewed and signed by the patient, and
== END ==
PROVIDERS: Visit Provider Clinical Nurse Specialist Family Health
DX: M51.16 Intervertebral disc disorders with radiculopathy, lumbar region (principal)
CPT/HCPCS: 99212

== ENCOUNTER → 2020-06-18 10:17 | Outpatient (POV) | payer BC, SELFPAY ==
[2020-06-18 10:29] VITALS: BP 154/76; PULSE 86; RESP 18; TEMP 36.6; O2SAT 94; BMI 45.4
--- NOTE | 2020-06-18 11:08 | HMH.PAINSOAP ---
[facility] Pain Management SOAP Note Subjective:: This patient is a pleasant 89-year-old white female who we have been treating for low back pain with lumbar colopathy symptoms. She currently has increasing back pain and leg pain and she is medically managed on oxycodone 20 mg 5 times a day as well as gabapentin 600 mg 3 times a day. Her Mika and urine drug screen are all appropriate Mika [id number]. Overall she has been doing well with her medications however they have not been lasting as long. She would like to talk about pursuing intrathecal therapy. We will need a slow wean off of her oral medications and psychological evaluation prior to intrathecal pump trial. Objective:: Alert and oriented x3 no acute distress. Patient does have an antalgic gait. Motor strength of the upper and lower extremities is 5/5. There is no gross sensory deficit. 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 We will reevaluate her symptoms and we will talk about starting a wean for preparation of intrathecal pump trial. Again she will need a slow wean off of her oral narcotics and psychological evaluation prior to pump trial. We will refill her oxycodone 20 mg 5 times a day and gabapentin 600 mg 3 times a day today. I will give her 1 month supply for both. [facility] History *Have you ever received a pneumonia vaccine?: No *Have you received a flu vaccine this season?: Yes - *Social History *Occupational Status:: retired *Travel in the last 8 weeks: None Family Hx:: Unable to obtain
== END ==
PROVIDERS: Visit Provider Anesthesiology
DX: M51.16 Intervertebral disc disorders with radiculopathy, lumbar region (principal)
CPT/HCPCS: 99212

== ENCOUNTER → 2020-07-12 09:22 | Outpatient (POV) | payer BC, SELFPAY ==
[2020-07-12 09:45] VITALS: BP 143/78; PULSE 85; RESP 18; O2SAT 99; BMI 43.8
--- NOTE | 2020-07-12 12:46 | HMH.PAINSOAP ---
[facility] Pain Management SOAP Note Subjective:: Patient is a 59-year-old white female who we are treating for low back pain with lumbar radiculopathy symptoms. She is currently medically managed with oxycodone 20 mg 5 times a day. As well as gabapentin 600 mg 1 p.o. 3 times daily. Her Rayna and urine drug screens are appropriate Rayna #[phone] [id number] reviewed. Overall she is not doing great with her medication. She states that it is not as beneficial and she is aware that she is addicted to her medications. Patient and I discussed potential bupivacaine pump trial to see if this would benefit her in her weaning off of her oral narcotic medications. I discussed with her with her morphine equivalent of 150 that this is too high and we will have to begin to wean her. Patient is quite worried about this. She rates her pain today a 5 out of 10. ROS General: no recent weight change, no fever, no sleep disturbances Respiratory: no cough, no shortness of air, no recurring pulmonary infections Cardiovascular/Peripheral Vascular: No chest pain, No palpitations, no edema, no shortness of breath. Gastrointestinal: no new onset incontinence, normal bowel movements reported Genitourinary: no new onset incontinence Musculoskeletal: Back pain Psychiatric: normal mood/ affect Neurological: [denies new onset weakness in extremities], [denies new onset balance issues] Objective:: Physical Exam General: Alert and oriented x3, no acute distress, pleasant and cooperative, [on room air] Lungs: Resps E/U, Symmetrical chest expansion, Eyes: PERRL Musculoskeletal: Flexion and extension of lumbar spine somewhat guarded secondary to pain, deep tendon reflexes normal, strength in upper and lower extremities [5/5], antalgic gait noted Neurological: speech clear, armor reconnaissance specialist equal, no gross sensory deficits Assessment:: Degenerative disc disease lumbar spine lumbar radiculopathy Plan:: We will schedule her for a bupivacaine intrathecal pain pump trial. We will begin weaning her as soon as possible. Patient has had a psychological evaluation for intrathecal pain pump. We will continue at this time her oxycodone 20 mg 1 p.o. 5 times a day and gabapentin 600 mg 1 p.o. 3 times daily. I will follow-up with her after her trial reassess her symptoms at that time she has been instructed to call the office if she has any issues prior to her next appointment. Dr. Lewis has reviewed this note and agrees with this plan of care. This note was dictated using voice recognition software and may contain errors or omissions Patient has been prescribed a controlled substance after being counseled on the medication, medication safety, and possible side effects. RAYNA report has been obtained and reviewed prior to prescription and found to be appropriate. Opioid contract was reviewed and signed by the patient, and that they have agreed to all of the terms set forth by our compliance program. [facility] History I have reviewed the patient's past medical history: Yes *Have you ever received a pneumonia vaccine?: Yes *Have you received a flu vaccine this season?: Yes - *Social History *Occupational Status:: other *Travel in the last 8 weeks: None Family Hx:: Unable to obtain
== END ==
PROVIDERS: PCP Family Medicine; Visit Provider Clinical Nurse Specialist Family Health
DX: M51.16 Intervertebral disc disorders with radiculopathy, lumbar region (principal)
CPT/HCPCS: 99212

== ENCOUNTER → 2020-08-06 08:14 | Day surgery (SDC) | payer BC, SELFPAY ==
[2020-08-06] VITALS (9 sets, daily range): BP systolic 108–172; BP diastolic 66–93; PULSE 62–96; RESP 18–21; TEMP 36.7; O2SAT 95–97; BMI 45.4
--- NOTE | 2020-08-06 09:16 | HMH.PMPROC ---
- Procedure Date: 08/06/20 Time: 09:18 Anesthesiologist:: Albino Lewis MD Complications:: None Pre-procedure Diagnosis:: Degenerative disc disease of lumbar spine with lumbar radiculopathy symptoms Post-procedure Diagnosis:: Same Indications for Procedure:: This patient is a pleasant 59-year-old white female who we are treating for low back pain with lumbar radiculopathy symptoms. She is currently managed with oxycodone 20 mg 5 times a day. She is also on gabapentin 600 mg 3 times a day. She has trouble weaning off her medications. She has morphine equivalent 150. It was thought that she may be able to start weaning her medications if she got some relief through intrathecal therapy. We will do a intrathecal bupivacaine pain pump trial today to see if this will give her some of this relief. She did take a oxycodone this morning at 6 AM. Her pain score right now is a 3 out of 10. I have told her to try to stay off of her oxycodone the rest of the day and see if she has adequate pain relief and increased functionality after this bupivacaine pain pump trial. Her Mika and urine drug screen are appropriate. She has an antalgic gait. Motor strength of the lower extremities is 5/5 with no gross sensory deficit. Procedure Details:: Pain pump trial Informed consent was obtained and the risk and benefits of the procedure was explained to the patient. The patient was taken to the procedure room and placed prone on the procedure table. Patient was prepped and draped in sterile fashion. C-arm fluoroscopy was used to view the lumbar spine. The skin and subcutaneous tissues were anesthetized using lidocaine. I placed a 18-gauge spinal needle into the L4-5 interspace and advanced until clear CSF was obtained. After this intrathecal catheter was inserted and advanced very easily to the L1 vertebral body. The needle was withdrawn. We were able to freely withdraw clear CSF through the catheter. We then injected intrathecal bupivacaine 3 mg single shot bolus followed by saline and followed by the previous CSF that was withdrawn. The needle and catheter were then removed and a Band-Aid was placed. Patient tolerated the procedure well with no complications. We reevaluated the patient after 30 minutes to 1 hour. She was also reassessed by physical therapy. Patient had 90 to 100% relief of her pain symptoms. Pain score is down to a 0-1 out of 10. She was numb. This did help significantly with her pain symptoms. I have told her to go home and be active and keep from taking her pain medication. We want to see if this allows her to increase her functionality and do things he wants to do and continue to give her adequate pain relief. This seems to be a successful pain pump trial. Right now she has no pain symptoms in her normal areas of pain. Plan and Disposition:: We will follow-up with her on Sunday. We will reevaluate her symptoms to see if this is helped. I told her to try to decrease her pain medication and refrain from taking it if she does not have any pain. I told her that we need to have her down to oxycodone 20 mg 2 to maybe 3 times daily prior to pain pump implant. We will plan on implanting her with intrathecal bupivacaine 5 mg/mL to start at 2.5 mg/day until she is completely off her oxycodone. We will reevaluate her symptoms and assess efficacy again of this pain pump trial at this follow-up visit.
--- NOTE | 2020-08-06 11:33 | PC.NURSE ---
0920-pt returned to [facility] via w/c accompanied by nursing staff. pt reports no pain. states legs are numb unable to move legs at this time. VSS, no c/o pain. at bedside. no needs at this time. 0935-pt resting in w/c. legs remain numb, unable to move legs. no c/o pain. VSS. tolerating PO intake. no needs or concerns at this time. 0950-VSS, no c/o pain. pt resting in chair. states able to feel legs but is unable to move them at this time. no needs or concerns at this time 1005-vss, no /co pain. pt resting. remains at beside. no needs at this time 1020-Vss, no c/o pain. pt states she feels her legs. states she is able to bear weight. pt assisted to reclining chair. weakness observed. 1030-Dr. Lewis at bedside, disussing POC
== END ==
PROVIDERS: PCP Family Medicine; Visit Provider Anesthesiology
DX: M51.16 Intervertebral disc disorders with radiculopathy, lumbar region (principal); K21.9 Gastro-esophageal reflux disease without esophagitis; E66.9 Obesity, unspecified; F32.9 Major depressive disorder, single episode, unspecified; Z90.89 Acquired absence of other organs; Z90.49 Acquired absence of other specified parts of digestive tract; Z98.84 Bariatric surgery status; Z90.711 Acquired absence of uterus with remaining cervical stump; Z88.5 Allergy status to narcotic agent; Z79.82 Long term (current) use of aspirin; Z79.899 Other long term (current) drug therapy; Z79.891 Long term (current) use of opiate analgesic
CPT/HCPCS: 62323; 96365

== ENCOUNTER → 2020-08-09 08:35 | Outpatient (POV) | payer BC, SELFPAY ==
[2020-08-09 08:37] VITALS: BP 125/57; PULSE 85; RESP 18; TEMP 36.4; O2SAT 99; BMI 45.4
--- NOTE | 2020-08-09 09:41 | P.CONS_ITS ---
[facility] Pain Management SOAP Note Subjective:: Pleasant 59-year-old white female who we are treating for low back pain with lumbar radiculopathy symptoms. She is currently medically managed with oxycodone 20 mg 1 p.o. 5 times a day. She had a bupivacaine pain pump trial. Patient did extremely well stating she got relief of her symptomology. And it lasted part of the day. And to wean off of her oxycodone down to 3 times a day. She rates her pain a 2 out of 10 today. Patient and I had a long discussion in regards to continuing to wean. She would like to do it as quickly as possible. She has had an appropriate psychological evaluation. She has some decreasing but she also understands that it is necessary. She is currently on a morphine equivalent of 150 mg. [facility] #[id number] reviewed and appropriate. ROS General: no recent weight change, no fever, no sleep disturbances Respiratory: no cough, no shortness of air, no recurring pulmonary infections Cardiovascular/Peripheral Vascular: No chest pain, No palpitations, no edema, no shortness of breath. Gastrointestinal: no new onset incontinence, normal bowel movements reported Genitourinary: no new onset incontinence Musculoskeletal: Back pain, Leg pain Psychiatric: normal mood/ affect Neurological: [denies new onset weakness in extremities], [denies new onset balance issues] Objective:: Physical Exam General: Alert and oriented x3, no acute distress, pleasant and cooperative, [on room air] Lungs: Resps E/U, Symmetrical chest expansion, Eyes: PERRL Musculoskeletal: Flexion and extension of lumbar spine somewhat guarded secondary to pain, deep tendon reflexes normal, strength in upper and lower extremities [5/5], slightly antalgic gait noted Neurological: speech clear, systems engineering manager equal, no gross sensory deficits Assessment:: Degenerative disc disease lumbar spine lumbar radiculopathy Plan:: We will decrease the patient down to oxycodone 20 mg 1 p.o. 3 times a day. She is to try this for a week and then begin to wean to 2 a day. Patient is not due medication at this time. We will also put her on clonidine 0.05 mg 1 p.o. twice daily to help with this decrease. We will follow-up with her in 2 weeks and see how she is doing with her wean. We will make decisions moving forward after this. Dr. Lewis has reviewed this note and agrees with this plan of care. This note was dictated using voice recognition software and may contain errors or omissions [facility] History I have reviewed the patient's past medical history: Yes Medical History: Denies:: Cancer, Diabetes Mellitus Type 1, Diabetes Mellitus Type 2, MRSA, Seizures *Have you ever received a pneumonia vaccine?: Yes *Have you received a flu vaccine this season?: Yes Laterality Cases: Bilateral: Tonsillectomy Other Surgeries: Yes: Bariatric Surgery, Cholecystectomy, Hysterectomy-Partial Amputation: No Fractures: No - *Social History Alcohol Intake: never *Occupational Status:: other Housing: house Household Members: spouse *Travel in the last 8 weeks: None Family Hx:: Unable to obtain
--- NOTE | 2020-08-24 09:51 | PC.NURSE ---
called in Rx for Valium 10mg PO x1 per MD order.
== END ==
PROVIDERS: PCP Family Medicine; Visit Provider Clinical Nurse Specialist Family Health
DX: M51.16 Intervertebral disc disorders with radiculopathy, lumbar region (principal)
CPT/HCPCS: 99212

== ENCOUNTER → 2020-08-27 12:23 | Outpatient (POV) | payer BC, SELFPAY ==
[2020-08-27 12:36] VITALS: BP 140/78; PULSE 72; RESP 20; TEMP 36.5; O2SAT 95; BMI 45.4
--- NOTE | 2020-08-27 13:07 | P.CONS_ITS ---
[facility] Pain Management SOAP Note Subjective:: Patient is a pleasant 59-year-old white female who we have been treating for low back pain with lumbar radiculopathy symptoms. She is weaning down on her oxycodone 20 mg 5 times a day. She is now down to 3 times a day. We will continue to wean her down prior to permanent placement of her intrathecal pain pump. I have told her to wean down to 2 a day and then the week prior to her pump placement to 1 a day. Objective:: Alert and oriented x3 no acute distress. Patient does have an antalgic gait. Motor strength of lower extremities is 5/5. There is no gross sensory deficit. Assessment:: Degenerative disc disease of lumbar spine with lumbar radiculopathy symptoms Plan:: I talked the patient about further weaning her oxycodone 20 mg to 2 a day for 1 week and then the week prior to her pump implant to oxycodone 20 mg once a day. She is to be completely off 48 hours prior to her implant. We will plan on her permanent placement of her intrathecal pain pump on September 15. This will be with intrathecal bupivacaine 5 mg/mL to start at 2.5 mg/day. Catheter tip will be at the L1 vertebral body. [facility] History Medical History: Denies:: Cancer, Diabetes Mellitus Type 1, Diabetes Mellitus Type 2, MRSA, Seizures *Have you ever received a pneumonia vaccine?: No *Have you received a flu vaccine this season?: No Laterality Cases: Bilateral: Tonsillectomy Other Surgeries: Yes: Bariatric Surgery, Cholecystectomy, Hysterectomy-Partial Amputation: No Fractures: No - *Social History Alcohol Intake: never *Occupational Status:: unemployed Housing: house Household Members: spouse *Travel in the last 8 weeks: None Family Hx:: Unable to obtain
== END ==
PROVIDERS: PCP Family Medicine; Visit Provider Anesthesiology
DX: M51.16 Intervertebral disc disorders with radiculopathy, lumbar region (principal)
CPT/HCPCS: 99212

== ENCOUNTER → 2020-09-14 16:47 | Outpatient (CLI) | payer BC, SELFPAY ==
[2020-09-14 17:48] LABS: Basophils # 0.1 K/mm3 (0-0.2); Basophils % 0.7 % (0.1-2.0); Eosinophils # 0.3 K/mm3 (0.0-0.4); Eosinophils % 4.4 % (0.1-12.0); Hematocrit 39.8 % (37.0-47.0); Hemoglobin 12.2 g/dL (12.2-16.2); Lymphocytes # 2.3 K/mm3 (0.7-4.5); Lymphocytes % 33.5 % (10-50); Mean Corpuscular HGB Conc 30.8 g/dL (31.8-35.4); Mean Corpuscular Hemoglobin 27.5 pg (27.0-31.2); Mean Corpuscular Volume 89.3 fl (81-99); Mean Platelet Volume 7.6 fl (7.4-10.4); Monocytes # 0.4 K/mm3 (0.1-1.0); Monocytes % 5.8 % (1.7-9.3); Neutrophils # 3.8 K/mm3 (1.8-7.8); Neutrophils % 55.5 % (37.0-80.0); Platelet Count 310 K/mm3 (142-424); Red Blood Count 4.45 M/mm3 (4.20-5.40); Red Cell Distribution Width 14.6 % (11.5-17.5); White Blood Count 6.8 K/mm3 (4.8-10.8)
[2020-09-14 18:23] LABS: Chloride 102 mmol/L (98-107); Sodium 138 mmol/L (136-145)
[2020-09-14 18:24] LABS: Potassium 4.2 mmoL/L (3.5-5.1)
[2020-09-14 18:26] LABS: Blood Urea Nitrogen 8 mg/dl (7-17); Estimated Glomerular Filt Rate 74 ml/min (>60); GFR (African American) 89 ML/MIN (>60)
[2020-09-14 18:27] LABS: Anion Gap 13.2 mEq/L (5-15); Calcium 9.6 mg/dl (8.4-10.2); Carbon Dioxide 27 mmol/L (22.0-30.0); Glucose 111 mg/dl (74-100)
[2020-09-14 19:47] LABS: Coronavirus 19 IgG Antibody Negative (Negative); Coronavirus 19 IgM Antibody Negative (Negative)
[2020-09-14 21:34] LABS: Benzodiazepines Screen,Urine Negative ng/ml (<200)
[2020-09-14 21:35] LABS: Amphetamine/Metha Screen,Urine Negative ng/ml (<1000)
[2020-09-14 21:36] LABS: Barbiturates Screen,Urine Negative ng/ml (<200); Cannabinoid Screen,Urine Negative ng/ml (<50)
[2020-09-14 21:37] LABS: Cocaine Screen,Urine Negative ng/ml (<300); Methadone Screen,Urine Negative ng/ml (<300)
[2020-09-14 21:38] LABS: Opiate Screen,Urine Positive ng/ml (<300)
[2020-09-14 21:39] LABS: Phencyclidine Screen,Urine Negative ng/ml (<25)
== END ==
PROVIDERS: Visit Provider Anesthesiology
DX: Z01.818 Encounter for other preprocedural examination (principal); M51.36 Other intervertebral disc degeneration, lumbar region
CPT/HCPCS: 36415; 80048; 80305; 85025; 86328

== ENCOUNTER 2020-09-15 12:10 | Day surgery (SDC) | payer BC, SELFPAY ==
[2020-09-14 13:43] VITALS: BMI 45.4
[2020-09-15 13:27] VITALS: BP 124/49; PULSE 56; RESP 18; TEMP 36.6; O2SAT 97
--- NOTE | 2020-09-15 13:59 | P.CONS_ITS ---
Assessment and Plan - Assessment and plan all Dx Assessment and Plan for all problems:: Impression-degenerative disc disease of the lumbar spine with radiculopathy Plan-placement of intrathecal pain pump generator today HPI - Data of Consult Patient: new to practice Consult date: 09/15/20 Requesting Physician: Albino Lewis MD Primary Care Provider: Nora Barajas - Consult Narrative History of present illness: Ms. Infante is a 60 year old female with chronic back pain attributed to degenerative disc disease of the lumbar spine with radiculopathy. Patient had a pain pump trial with success and she comes in today for placement of that system. CC: Albino Lewis MD [facility] History Medical History: Denies:: Cancer, Diabetes Mellitus Type 1, Diabetes Mellitus Type 2, MRSA, Seizures *Have you ever received a pneumonia vaccine?: No *Have you received a flu vaccine this season?: No Other Medical History: Denies: Blood Transfusion Reaction Comment:: Illnesses GERD, anxiety and depression, chronic back pain, opioid dependency Laterality Cases: Bilateral: Tonsillectomy Other Surgeries: Yes: Bariatric Surgery, Cholecystectomy, Hysterectomy-Partial Amputation: No Fractures: No Comment: Durations-bariatric surgery, tonsillectomy, cholecystectomy, hysterectomy - *Social History Last grade of school completed: High school graduate Smoking Status: Never smoker Alcohol Intake: current Alcohol Intake Frequency:: holidays/special occasions only *Occupational Status:: retired Housing: house Household Members: spouse *Travel in the last 8 weeks: None Family Hx:: Unable to obtain Review of Systems - Review of Systems Review of systems:: pertinent systems reviewed and negative unless documented below Meds Home Medications Medication Instructions Recorded Confirmed Type Aspirin [Aspirin 81mg chewable 81 mg PO DAILY 08/06/20 09/15/20 History tab] Gabapentin 600 mg PO TID 08/06/20 09/15/20 History Meloxicam 15 mg PO DAILY 08/06/20 09/15/20 History Mv,Calcium,Min/Iron/Folic/Vitk 1 each PO DAILY 08/06/20 09/15/20 History [Multi For Her Tablet] Omeprazole [Omeprazole 40mg 40 mg PO DAILY 08/06/20 09/15/20 History Capsule] Vitamin B Complex [B Complex] 1 each PO DAILY 08/06/20 09/15/20 History Oxycodone HCl [Oxycodone (IR) 20mg 20 mg PO TID 09/13/20 09/15/20 History Tab] Venlafaxine HCl [Venlafaxine HCl 75 mg PO DAILY 09/14/20 09/15/20 History ER] cloNIDine HCL [cloNIDine 0.1mg 0.1 mg PO BID 09/14/20 09/14/20 History Tablet] Allergies Allergy/AdvReac Type Severity Reaction Status Date / Time morphine [MORPHINE] Allergy Intermediate Hallucinati Verified 09/15/20 13:24 ng Objective Vital signs: Temp Pulse Resp BP Pulse Ox 97.9 F 56 L 18 124/49 L 97 09/15/20 13:27 09/15/20 13:27 09/15/20 13:27 09/15/20 13:27 09/15/20 13:27 no acute distress - *Routine Respiratory Exam Present: CTA bilaterally - *Routine Cardiovascular Exam Present: RRR - *Routine Abdominal Exam Present: soft, normoactive bowel sounds. Absent: tenderness
--- NOTE | 2020-09-15 16:22 | P.OP_ITS ---
Date of procedure: 09/15/20 Pre-op Diagnosis:: Degenerative disc disease of lumbar spine with lumbar radiculopathy symptoms Post-op Diagnosis:: Same Procedure performed:: Intrathecal catheter placement with tunneling for permanent intrathecal pain pump Surgeon:: Albino Lewis MD PROSTHODONTIST:: Sebas Vincent Anesthesia: MAC Estimated blood loss (mL): 5 Clinical Note:: Patient is a pleasant 89-year-old white female who we have been treating for low back pain with lumbar radiculopathy symptoms. She has been weaning down on her oxycodone 20 mg five times a day she is now completely off of her oxycodone. She has been off for the last 48 hours. She has been weaning 1 pill a week over the last 4 weeks. She had a successful intrathecal pump trial with bupivacaine. She also had a successful psychological evaluation. She has failed all previous conservative therapy including injections, oral medications, physical therapy and she is not a surgical candidate. She presents for permanent placement of her intrathecal pain pump today. Operative findings:: None Operative note:: Informed consent was obtained and the risk and benefits of the procedure were explained to the patient. The patient was taken to the operating room placed prone on the procedure table. She was prepped and draped in sterile fashion. C-arm fluoroscopy was used to view the lumbar spine. The skin and subcutaneous tissues adjacent to the L4-L5 interspace were anesthetized using lidocaine. I made an incision and dissected down to the lumbar paraspinous fascia. A 14- gauge spinal needle was inserted and advanced into the L4-L5 interspace until clear CSF was obtained. After this intrathecal catheter was inserted and adv anced very easily to the L1 vertebral body. The stylette of the catheter and the needle were withdrawn. We were able to freely withdraw clear CSF through the catheter. The catheter was secured to the fascia with two anchoring devices and 2-0 Prolene. I prepared the pump with 20 mL of intrathecal bupivacaine 5 mg/mL while Dr. Joy prepared the pump pocket. I tunneled the catheter from the back to the pump pocket and attached the catheter to the pump. The pump was secured to the patient in the pocket with 2-0 Prolene. We were able to freely withdraw clear CSF through the side-port. The incisions were irrigated with bacitracin solution. Both incisions were then closed with 2-0 Vicryl followed by 4-0 nylon. A wound VAC was placed over both incisions. Patient was placed in an abdominal binder and taken recovery in stable condition. The pump was programmed by the representatives to start at 2.5 mg/day of intrathecal bupivacaine. Patient was discharged home neurologically intact with good relief of her pain symptoms. Plan and disposition: We will follow-up with this patient in 1 week for wound check. We will follow-up in 2 weeks for suture removal. Will reevaluate s ymptoms at that time. Condition: stable Disposition: PACU Complications:: None
--- NOTE | 2020-09-15 17:24 | P.OP_ITS ---
Date of procedure: 09/15/20 Pre-op Diagnosis:: Degenerative disc disease of the lumbar spine with radiculopathy Post-op Diagnosis:: Same Procedure performed:: Placement of intrathecal pain pump generator Surgeon:: Tejas Joy MD POLICE CAPTAIN:: Himanshu Bull, Howard Flores, Kaleb Roach, Sebas Vincent, Dc Anesthesia: MAC Estimated blood loss (mL): 5 Operative findings:: Not applicable Operative note:: Once adequate IV sedation was obtained by anesthesia and local anesthesia was 1% Xylocaine with epinephrine the patient was placed prone on the operating table and her back and flank regions were prepped and draped in sterile fashion. Paraspinal incision was made by Dr. Myrick there which an intrathecal catheter was passed into the intrathecal space to the area desired by Dr. Myrick. Right flank incision is then made under which is made a pocket for placement of the generator. Catheter fixed the paraspinal fascia with fixation devices and 2-0 Prolene suture. Utilizing a tunneling device the catheter was passed from the paraspinal incision to the pocket incision. Both pockets irrigated with antibiotic solution. Catheter connected to the generator which was placed in the pocket. Generator sutured to the underlying fascia with 2-0 Prolene suture. Subcutaneous tissues closed with interrupted stitches of 2-0 Vicryl after CSF was aspirated from the generator noting patency of the system. Skin then closed with stitches of 4-0 nylon. Wound VAC dressing and a binder applied to the wound. The patient tolerated procedure well and was taken to the recovery room in stable condition. Follow-up in 1 week for removal of the wound VAC dressings in 2 weeks removal of sutures. Antibiotics x1 week per protocol. The patient again tolerated the procedure well Condition: stable Disposition: PACU Complications:: None
[2020-09-15 17:32] VITALS: BP 128/86; PULSE 90; RESP 18; TEMP 36.2; O2SAT 90
--- NOTE | 2020-09-15 17:46 | P.PN_ITS ---
[facility] Anesthesia Checklist - Patient Identification Patient Identification: Arm Band, Verbal (Name & ) - Structural Data Admitted From: Home Planned Operative Procedure/s: Placement of intrathecal pain pump Consent for Planned Operative Procedure(s) Verified: Yes Verified Documents: Surgical Consent, History and Physical - NPO Status Verified Time NPO: 00:00 - Chart Verification Results Verified: CBC, BMP - Additional verifications Anesthesia Reactions: No Hx Blood Transfusions: No Blood Transfusion Reaction: No - Airway Assessment C-Spine Mobility Assessed: Yes TMJ Mobility Assessed: Yes Dentition: Good Dentition (Chipped teeth) - Neurological Assessment Level of Consciousness: Awake, Alert, Appropriate, Follows Commands Hx Seizures: No Numbness or tingling in extremities: No - Anesthesia Plan Anesthesia Risk discussed: Yes Anesthesia Plan: Verified ASA Class: III Anesthesia Type: MAC [facility] History I have reviewed the patient's past medical history: Yes Medical History: Reports:: Depression, Gastroesophageal Reflux Disease(GERD), Hypertension Denies:: Cancer, Diabetes Mellitus Type 1, Diabetes Mellitus Type 2, MRSA, Seizures *Have you ever received a pneumonia vaccine?: No *Have you received a flu vaccine this season?: No Other Medical History: Denies: Blood Transfusion Reaction Comment:: morbid obesity, chronic back pain, EDUARDA Anesthesia experience/problems:: No prior complications Laterality Cases: Bilateral: Tonsillectomy Other Surgeries: Yes: Bariatric Surgery, Cholecystectomy, Hysterectomy-Partial Amputation: No Fractures: No - *Social History Last grade of school completed: High school graduate Smoking Status: Never smoker Alcohol Intake: current Alcohol Intake Frequency:: holidays/special occasions only Substance Use Type: denies use *Occupational Status:: retired Housing: house Household Members: spouse *Travel in the last 8 weeks: None Family Hx:: Unable to obtain
[2020-09-15 17:47] VITALS: BP 105/82; PULSE 88; RESP 18; TEMP 36.2; O2SAT 92
[2020-09-15 18:02] VITALS: BP 127/86; PULSE 81; RESP 18; TEMP 36.2; O2SAT 95
[2020-09-15 18:17] VITALS: BP 132/84; PULSE 70; RESP 18; TEMP 36.7; O2SAT 96
== END 2020-09-15 18:20 | disposition home or self-care (01) ==
LOC: OR 12:11
PROVIDERS: PCP Family Medicine; Visit Provider Anesthesiology
PROC: (CPT 62350; principal; 2020-09-15 12:30)
DX: M51.16 Intervertebral disc disorders with radiculopathy, lumbar region (principal); K21.9 Gastro-esophageal reflux disease without esophagitis; F41.9 Anxiety disorder, unspecified; F32.9 Major depressive disorder, single episode, unspecified; Z90.49 Acquired absence of other specified parts of digestive tract; F11.21 Opioid dependence, in remission; Z98.84 Bariatric surgery status; Z90.711 Acquired absence of uterus with remaining cervical stump; Z88.6 Allergy status to analgesic agent; Z79.82 Long term (current) use of aspirin
CPT/HCPCS: 62350; 62362; 96374; C1755; C1772; J3370

== ENCOUNTER → 2020-09-30 10:24 | Outpatient (POV) | payer BC, SELFPAY ==
[2020-09-30 11:18] VITALS: BP 142/74; PULSE 74; RESP 18; O2SAT 98; BMI 36982.7
--- NOTE | 2020-09-30 17:52 | HMH.PAINSOAP ---
[facility] Pain Management SOAP Note Subjective:: Patient is a 60-year-old white female who presents today for follow-up. She is being treated for chronic degenerative disc disease lumbar spine with lumbar radiculopathy symptoms. She is following up today after starting clonidine as well as oxazepam for withdrawal symptoms. Patient was recently placed with an intrathecal pain pump. She has bupivacaine in her pump. She is having pain at a 5 out of 10 today. She says that she is continuing to have worsening withdrawal type symptoms. She was previously on oxycodone 20 mg 1 tablet p.o. 5 times daily and has weaned on the medication. She says that she is continuing to have significant anxiety and itching from weaning from the medication. Patient was started on clonidine at 0.1 mg 1 tablet p.o. twice daily for 5 days as well as oxazepam 10 mg 1 tablet p.o. twice daily. Patient does admit today that she was taking the clonidine more than prescribed. She says that she has been having a great deal of difficulty withdrawing from the medicine. Review of Systems General: No recent weight changes, no fever, no sleep disturbances Respiratory: No cough, no shortness of air, no recurring pulmonary infections Cardiovascular/peripheral vascular: No chest pain, no palpitations, no edema, no shortness of breath Gastrointestinal: No new onset incontinence, normal bowel movements reported Genitourinary: No new onset incontinence Musculoskeletal: Low back pain Psychiatric: Normal mood/affect, generalized anxiety Neurological: [Denies weakness in extremities], [denies balance issues], pruritus, Objective:: Physical exam General: Alert and oriented x3, no acute distress, pleasant and cooperative, [on room air] Lungs: Respirations even and unlabored, symmetrical chest expansion Eyes: PERRL Musculoskeletal: Flexion and extension of lumbar spine somewhat guarded secondary to pain, deep tendon reflexes normal, strength in upper and lower extremities [5/5], [abnormal gait noted] Neurological: Speech clear, farmworker cranberry equal, no gross sensory deficit Assessment:: Degenerative disc disease lumbar spine with lumbar radiculopathy symptoms Plan:: Patient I had a long discussion concerning her medications. We will give her another week of clonidine 0.1 mg 1 tablet p.o. twice daily for 5 days. We will give her oxazepam 10 mg 1 tablet p.o. twice daily for 5 days. I have advised her to wean on the medication and to not take more than prescribed. She is in agreement. We will see the patient back in a week to reassess her symptoms. Patient's intrathecal pump is currently at 2.75 mg of bupivacaine. Patient has been instructed to contact clinic if she has any concerns before next appointment. The patient and I specifically discussed risk factors for COVID19. These risks include, but are not limited to age greater than 60, heart or lung disease, diabetes, immunosuppression, and travel. We also discussed NSAIDs may worsen COVID19 infection or symptoms. Patient should not use NSAIDs to treat COVID19 signs or symptoms. Patient was also informed that any type of corticosteroid of any form (oral or injection) will decrease the patient's immune system response and may increase the likelihood of COVID19 infection and symptoms[address] Dr. Lewis has reviewed this note and agrees with this plan of care. This note was dictated using voice recognition software and make contain errors or omissions. [facility] History I have reviewed the patient's past medical history: Yes Medical History: Reports:: Depression, Gastroesophageal Reflux Disease(GERD), Hypertension Denies:: Cancer, Diabetes Mellitus Type 1, Diabetes Mellitus Type 2, MRSA, Seizures *Have you ever received a pneumonia vaccine?: Yes *Have you received a flu vaccine this season?: Yes Other Medical History: Denies: Blood Transfusion Reaction Laterality Cases: Bilateral: Tonsillectomy Other Surgeries: Yes: Bariatric Surgery, Cholecy
== END ==
PROVIDERS: PCP Family Medicine; Visit Provider Clinical Nurse Specialist Family Health
DX: M51.16 Intervertebral disc disorders with radiculopathy, lumbar region (principal)
CPT/HCPCS: 62368; 99212

== ENCOUNTER → 2020-10-07 11:24 | Outpatient (POV) | payer BC, SELFPAY ==
[2020-10-07 12:33] VITALS: BP 141/75; PULSE 85; RESP 18; TEMP 36.6; O2SAT 98; BMI 45.4
--- NOTE | 2020-10-07 12:58 | P.PCN_ITS ---
- Procedure Date: 10/07/20 Time: 12:59 Anesthesiologist:: Cathi Hutson APRN Complications:: None Pre-procedure Diagnosis:: Degenerative disc disease lumbar spine lumbar radiculopathy Post-procedure Diagnosis:: Same Indications for Procedure:: Patient is a pleasant 60-year-old white female who presents today for follow-up. Patient is a intrathecal pain pump with bupivacaine. She has successfully weaned off her oxycodone. She is still having some withdrawal symptoms. She is on oxazepam 10 mg 1 tab p.o. twice daily. We will continue this for 1 month. She rates her pain a 6 out of 10. Patient also has a headache. We she was given a one-time bolus of 0.25 mg over 2 minutes and she did extremely well having her pain come down to a 3 out of 10 and her headache resolving. We will set up her PTC today at this dose. Physical Exam General: Alert and oriented x3, no acute distress, pleasant and cooperative, [on room air] Lungs: Resps E/U, Symmetrical chest expansion, Eyes: PERRL Musculoskeletal: Flexion and extension of lumbar spine somewhat guarded secondary to pain, deep tendon reflexes normal, strength in upper and lower extremities [5/5], normal gait noted Neurological: speech clear, dry house wheeler equal, no gross sensory deficits Procedure Details:: Informed consent was obtained and the risk and benefits of the procedure were explained to the patient. The patient was taken to the procedure room where noninvasive monitoring was placed including noninvasive blood pressure cuff and pulse oximeter. Patient's pump was interrogated and reprogrammed. The infusion rate was continued at 2.75 mg of bupivacaine a day. Her PTC was set up at 0.25 mg over 2 minutes every 4 hours if needed.. The patient tolerated the procedure well. Plan and Disposition:: We will follow up with the patient at her next intrathecal pain pump refill and reprogram she has been instructed to call the office if she has any issues prior to her next appointment. We will increase her concentration at her next visit to 7 mg/mL of bupivacaine
== END ==
PROVIDERS: PCP Family Medicine; Visit Provider Clinical Nurse Specialist Family Health
DX: M51.16 Intervertebral disc disorders with radiculopathy, lumbar region (principal)
CPT/HCPCS: 62368

== ENCOUNTER 2020-10-11 14:04 | Day surgery (SDC) | payer BC, SELFPAY ==
[2020-10-11 14:43] VITALS: BP 150/76; PULSE 94; RESP 18; TEMP 36.4; O2SAT 96; BMI 45.4
--- NOTE | 2020-10-11 15:00 | P.PCN_ITS ---
- Procedure Date: 10/11/20 Time: 15:00 Anesthesiologist:: Cathi Hutson APRN Complications:: None Pre-procedure Diagnosis:: Degenerative disc disease lumbar spine lumbar radiculopathy Post-procedure Diagnosis:: Same Indications for Procedure:: Patient is a pleasant 60-year-old white female who presents today for follow-up. Patient has an intrathecal pain pump with bupivacaine. Patient rates her pain today a 4 out of 10 overall she is doing well. She her only complaint today is that she is having headaches. Patient and I discussed a small increase in regard to her intrathecal bupivacaine. Physical Exam General: Alert and oriented x3, no acute distress, pleasant and cooperative, [on room air] Lungs: Resps E/U, Symmetrical chest expansion, Eyes: PERRL Musculoskeletal: Flexion and extension of lumbar spine somewhat guarded secondary to pain, deep tendon reflexes normal, strength in upper and lower extremities [5/5], [abnormal gait noted] Neurological: speech clear, manager medicare equal, no gross sensory deficits Procedure Details:: Informed consent was obtained and the risk and benefits of the procedure were explained to the patient. The patient was taken to the procedure room where noninvasive monitoring was placed including noninvasive blood pressure cuff and pulse oximeter. Patient's pump was interrogated. The area over the pump was cleansed with chlorhexidine as a cleansing solution. In sterile fashion the pump was accessed with a 22-gauge needle. Approximately 5 mL's were removed of the pump solution and discarded appropriately. The pump was then refilled with 20 mL's of bupivacaine 7 mg/mL. The needle was withdrawn and a bandage was placed over the puncture site. The infusion rate was reprogrammed to 3 mg/day of bupivacaine. The patient tolerated the procedure well. Plan and Disposition:: We will follow up with the patient at her next intrathecal pain pump refill and reprogram she has been instructed to call the office if she has any issues prior to next appointment. Dr. Lewis has reviewed this note and agrees with this plan of care. This note was dictated using voice recognition software and may contain errors or omissions
[2020-10-11 15:03] VITALS: BP 152/88; PULSE 95; RESP 18; O2SAT 97
[2020-10-11 15:04] VITALS: BP 155/74; PULSE 94; RESP 18; O2SAT 98
[2020-10-11 15:24] VITALS: BP 155/99; PULSE 84; RESP 18; O2SAT 96
== END 2020-10-11 15:25 | disposition home or self-care (01) ==
LOC: SC.PAINP 14:05
PROVIDERS: PCP Family Medicine; Visit Provider Clinical Nurse Specialist Family Health
DX: M51.16 Intervertebral disc disorders with radiculopathy, lumbar region (principal); K21.9 Gastro-esophageal reflux disease without esophagitis; F32.9 Major depressive disorder, single episode, unspecified; F41.9 Anxiety disorder, unspecified; Z90.49 Acquired absence of other specified parts of digestive tract; Z98.84 Bariatric surgery status
CPT/HCPCS: 62370

== ENCOUNTER → 2020-10-18 13:33 | Outpatient (CLI) | payer BC, SELFPAY ==
[2020-10-20 15:53] LABS: Covid-19 Nasal PCR Sendout Lex Not Detected
== END ==
PROVIDERS: PCP Family Medicine; Visit Provider Family Medicine
DX: Z03.818 Encounter for observation for suspected exposure to other biological agents ruled out (principal)
CPT/HCPCS: U0004

== ENCOUNTER → 2020-10-22 10:59 | Outpatient (POV) | payer BC, SELFPAY ==
[2020-10-22 11:18] VITALS: BP 147/77; PULSE 92; RESP 18; TEMP 36.2; O2SAT 99; BMI 43.8
--- NOTE | 2020-10-22 13:01 | HMH.PMPROC ---
- Procedure Date: 10/22/20 Time: 13:01 Anesthesiologist:: Albino Lewis MD Complications:: None Pre-procedure Diagnosis:: Degenerative disc disease of lumbar spine with lumbar radiculopathy symptoms Post-procedure Diagnosis:: Same Indications for Procedure:: This patient is a pleasant 60-year-old white female who has an intrathecal bupivacaine pain pump in place. Since her implant she has complained of a headache. It is unsure as to whether this headache is due to her intrathecal bupivacaine or has another causal agent. Overall she has been doing well with her pump. We will increase her pump today to see if this helps with her symptoms or makes her headache any worse. We will follow-up with her on Sunday to reevaluate her symptoms and determine whether bupivacaine may be worsening her headache symptoms. Procedure Details:: Informed consent was obtained and the risk and benefits of the procedure were explained to the patient. The intrathecal bupivacaine pain pump was adjusted and increased to 4 mg/day. PTC boluses remained at 0.25 mg up to 6 times a day. Patient tolerated the procedure well with no complications. Plan and Disposition:: We will follow-up with her on Sunday. We will reevaluate her symptoms at that time. She is off all oral narcotics however she is still taking her oxazepam. If her headache worsens with this increase in her intrathecal bupivacaine infusion we may consider switching her medication out to intrathecal morphine or Dilaudid.
== END ==
PROVIDERS: PCP Family Medicine; Visit Provider Anesthesiology
DX: M51.16 Intervertebral disc disorders with radiculopathy, lumbar region (principal); Z45.1 Encounter for adjustment and management of infusion pump
CPT/HCPCS: 62368

== ENCOUNTER → 2020-10-25 11:03 | Outpatient (POV) | payer BC, SELFPAY ==
[2020-10-25 11:46] VITALS: BP 135/85; PULSE 82; RESP 18; TEMP 36.2; O2SAT 98; BMI 44.6
--- NOTE | 2020-10-25 12:32 | P.PCN_ITS ---
- Procedure Date: 10/25/20 Time: 12:32 Anesthesiologist:: Cathi Hutson APRN Complications:: None Pre-procedure Diagnosis:: Degenerative disc disease lumbar spine lumbar radiculopathy Post-procedure Diagnosis:: Same Indications for Procedure:: Patient is a pleasant 60-year-old white female who presents today for intrathecal pain pump adjustment. At her last visit she was increased to 4 mg of bupivacaine. Patient states that she has worsening headaches. She states is unbearable. She rates her pain today a 7 out of 10. We will turn her pump off today. Has an allergy to morphine. We will order her Dilaudid 5 mg/mL and start her at 0.1 mg/day patient has now been off oral narcotics for several weeks. Patient's pump was turned off for half an hour and her headache began to subside somewhat. Physical Exam General: Alert and oriented x3, no acute distress, pleasant and cooperative, [on room air] Lungs: Resps E/U, Symmetrical chest expansion, Eyes: PERRL Musculoskeletal: Flexion and extension of lumbar spine somewhat guarded secondary to pain, deep tendon reflexes normal, strength in upper and lower extremities [5/5], slightly antalgic gait noted Neurological: speech clear, sales and leasing agent equal, no gross sensory deficits Procedure Details:: Informed consent was obtained and the risk and benefits of the procedure were explained to the patient. The patient was taken to the procedure room where noninvasive monitoring was placed including noninvasive blood pressure cuff and pulse oximeter. Patient's pump was interrogated and reprogrammed. The infusion rate was turned to 0 mg/day her PTC was left active with the patient's ability to bolus herself 0.25 mg of bupivacaine up to 6 times per day . Patient can the patient tolerated the procedure well. Plan and Disposition:: I spoke with the [facility]. We will have her set up on for a catheter access and refill. We will start her on Dilaudid 5 mg/mL starting at 0.05 to 0.1 mg/day. We will give her tramadol 50 mg 3 times daily as needed for her headache at this time. Patient has been off her narcotic medications for several weeks. I discussed this with both the [place] [facility] and with the patient and they would like to move forward with this. Patient does have an allergy to morphine. She has been instructed to call the office if she has any issues prior to her next appointment. Dr. Lewis has reviewed this note and agrees with this plan of care. This note was dictated using voice recognition software and may contain errors or omissions
== END ==
PROVIDERS: PCP Family Medicine; Visit Provider Clinical Nurse Specialist Family Health
DX: M51.16 Intervertebral disc disorders with radiculopathy, lumbar region (principal); Z45.1 Encounter for adjustment and management of infusion pump
CPT/HCPCS: 62368

== ENCOUNTER → 2020-11-05 09:19 | Outpatient (POV) | payer BC, SELFPAY ==
[2020-11-05 10:40] VITALS: BP 171/99; PULSE 115; RESP 20; TEMP 36.2; O2SAT 95; BMI 43.8
--- NOTE | 2020-11-05 11:27 | HMH.PMPROC ---
- Procedure Date: 11/05/20 Time: 11:27 Anesthesiologist:: Albino Lewis MD Complications:: None Pre-procedure Diagnosis:: Degenerative disc disease of lumbar spine with lumbar radiculopathy symptoms Post-procedure Diagnosis:: Same Indications for Procedure:: Patient is a pleasant 60-year-old white female who we are treating for low back pain with lumbar radicular symptoms. We have switched her over to an intrathecal Dilaudid pain pump from bupivacaine because of significant side effects. She is now doing better on Dilaudid however still has some increasing pain. Her headaches have resolved. We will adjust her intrathecal Dilaudid infusion and put her on periodic flow to help with her neck pain and shoulder pain. We will switch her over to periodic flow with 0.05 mg boluses every 8 hours. She will have 3 boluses a day for total daily dose of 0.15 mg/day. Mika and urine drug screen are all appropriate she is off all oral narcotics. Mika [id number]. Procedure Details:: Adjustment of intrathecal Dilaudid pain pump and reprogramming Informed consent was obtained and the risk and benefits of the procedure was explained to the patient. Patient was taken to the procedure room. The pump was interrogated. Intrathecal Dilaudid infusion was increased to 0.15 mg/day with periodic boluses of 0.05 mg up to 3 times a day. Patient tolerated the procedure well with no complications. Plan and Disposition:: We will follow-up with her in a week we will readjust her intrathecal infusion at that time if needed.
== END ==
PROVIDERS: PCP Family Medicine; Visit Provider Anesthesiology
DX: M51.16 Intervertebral disc disorders with radiculopathy, lumbar region (principal)
CPT/HCPCS: 62368

== ENCOUNTER → 2020-11-10 09:31 | Outpatient (POV) | payer BC, SELFPAY ==
[2020-11-10 10:28] VITALS: BP 155/85; PULSE 95; RESP 20; TEMP 36.1; O2SAT 96; BMI 43.8
--- NOTE | 2020-11-10 11:28 | HMH.PAINSOAP ---
[facility] Pain Management SOAP Note Subjective:: This patient is a pleasant 60-year-old white female who we are treating for low back pain with lumbar radicular symptoms. She is doing better with her periodic flow of intrathecal Dilaudid. She is currently on 0.15 mg/day with periodic boluses of 0.05 mg up to 3 times a day. We just changed her last week so we will not make any changes today. I will have her follow-up on Sunday and will make further changes at that time. Overall she has had no side effects. Her headaches are gone and her pain is somewhat better however she still is having some pain and would like an increase at some point. Objective:: Alert and oriented x3 no acute distress. Patient does have an antalgic gait. Motor strength of the lower extremities is 5/5. There is no gross sensory deficit. Pump currently is going at 0.15 mg/day of intrathecal Dilaudid with periodic boluses of 0.05 mg up to 3 times a day. Assessment:: Degenerative disc disease of lumbar spine with lumbar radiculopathy symptoms. Plan:: We will see her back next Sunday. This will be with one of my nurse practitioners. We will increase her intrathecal Dilaudid infusion to 0.07 milligrams boluses to 6 times a day with a 4-hour lockout. This will increase her daily dose pretty significantly to 0.42 mg/day. Since this is an aggressive increase we will follow-up with her 1 week after this increase. Patient is hoping to go to [place] here in the next couple weeks for 3 months. [facility] History Medical History: Reports:: Depression, Gastroesophageal Reflux Disease(GERD), Hypertension Denies:: Cancer, Diabetes Mellitus Type 1, Diabetes Mellitus Type 2, MRSA, Seizures *Have you ever received a pneumonia vaccine?: No *Have you received a flu vaccine this season?: No Other Medical History: Denies: Blood Transfusion Reaction Laterality Cases: Bilateral: Tonsillectomy Other Surgeries: Yes: Bariatric Surgery, Cholecystectomy, Hysterectomy-Partial Amputation: No Fractures: No - *Social History Smoking Status: Never smoker Alcohol Intake: never Alcohol Intake Frequency:: holidays/special occasions only Substance Use Type: denies use *Occupational Status:: retired Housing: house Household Members: spouse *Travel in the last 8 weeks: None - Psychiatric History Pschychiatric History:: Reports:: Depression Family Hx:: Unable to obtain
== END ==
PROVIDERS: PCP Family Medicine; Visit Provider Anesthesiology
DX: M51.16 Intervertebral disc disorders with radiculopathy, lumbar region (principal)
CPT/HCPCS: 99212

== ENCOUNTER → 2020-11-15 10:06 | Outpatient (POV) | payer BC, SELFPAY ==
[2020-11-15 10:57] VITALS: BP 125/74; PULSE 74; RESP 18; O2SAT 98; BMI 43.8
--- NOTE | 2020-11-15 11:00 | P.PCN_ITS ---
- Procedure Date: 11/15/20 Time: 11:00 Anesthesiologist:: Cathi Hutson APRN Complications:: None Pre-procedure Diagnosis:: Disc disease lumbar spine lumbar radiculopathy symptoms Post-procedure Diagnosis:: Same Indications for Procedure:: Patient is a pleasant 60-year-old white female who we are treating for low back pain with lumbar radiculopathy. Patient was switched to periodic flow and is doing well however she still rates her pain a 6 out of 10 and states that she does not have any side effects to her medication. Patient was on OxyContin prior to her implant. She is no longer on any oral narcotic medications. Physical Exam General: Alert and oriented x3, no acute distress, pleasant and cooperative, [on room air] Lungs: Resps E/U, Symmetrical chest expansion, Eyes: PERRL Musculoskeletal: Flexion and extension of lumbar spine somewhat guarded secondary to pain, deep tendon reflexes normal, strength in upper and lower extremities [5/5], [abnormal gait noted] Neurological: speech clear, electronic instrument trades worker equal, no gross sensory deficits Procedure Details:: Informed consent was obtained and the risk and benefits of the procedure were explained to the patient. The patient was taken to the procedure room where noninvasive monitoring was placed including noninvasive blood pressure cuff and pulse oximeter. Patient's pump was interrogated and reprogrammed. The infusion rate was increased to 0.05 g of Dilaudid every 4 hours. The patient tolerated the procedure well. Plan and Disposition:: We will see the patient back for her next intrathecal pain pump refill and reprogram. Patient has been instructed to call the office if she has any issues or needs any adjustments prior to her next appointment. Dr. Lewis has reviewed this note and agrees with this plan of care. This note was dictated using voice recognition software and may contain errors or omissions
== END ==
PROVIDERS: Visit Provider Clinical Nurse Specialist Family Health
DX: M51.16 Intervertebral disc disorders with radiculopathy, lumbar region (principal)
CPT/HCPCS: 62368

== ENCOUNTER → 2021-03-16 11:46 | Outpatient (POV) | payer BC, SELFPAY ==
[2021-03-16 11:45] VITALS: BP 125/74; PULSE 74; RESP 18; O2SAT 98; BMI 43.9
--- NOTE | 2021-03-16 13:29 | HMH.PAINSOAP ---
[facility] Pain Management SOAP Note Subjective:: Patient is a pleasant 60-year-old white female who we are treating for low back pain with lumbar radiculopathy symptoms. She is doing well on her intrathecal Dilaudid pain pump. She has had some increase in her pain recently. She is caring for her . She is on her home refill service with [facility]. She is being refill tomorrow. She is wanting an increase. We will communicate this to the home refill nurse to increase her 20% she currently is getting 0.3 mg of Dilaudid daily. This will be increased to 0.36 mg/day. Objective:: Alert and oriented x3 no acute distress. Patient does have an antalgic gait. Motor strength of the lower extremities is 5/5. There is no gross sensory deficit. Assessment:: Degenerative disc disease of lumbar spine with lumbar radiculopathy symptoms with increasing back pain Plan:: Patient is doing well with her intrathecal Dilaudid pain pump. She is under the home refill service of [facility]. We will communicate an increase of 20% to the [facility] home refill nurse increasing her total daily dose to 0.36 mg/day of intrathecal Dilaudid. [facility] History Medical History: Reports:: Depression, Gastroesophageal Reflux Disease(GERD), Hypertension Denies:: Cancer, Diabetes Mellitus Type 1, Diabetes Mellitus Type 2, MRSA, Seizures *Have you ever received a pneumonia vaccine?: Yes *Have you received a flu vaccine this season?: Yes Other Medical History: Denies: Blood Transfusion Reaction Laterality Cases: Bilateral: Tonsillectomy Other Surgeries: Yes: Bariatric Surgery, Cholecystectomy, Hysterectomy-Partial Amputation: No Fractures: No - *Social History Smoking Status: Never smoker Alcohol Intake: never Alcohol Intake Frequency:: holidays/special occasions only Substance Use Type: denies use *Occupational Status:: other Housing: house Household Members: spouse *Travel in the last 8 weeks: Inside the [place] - Psychiatric History Pschychiatric History:: Reports:: Depression Family Hx:: Unable to obtain
== END ==
PROVIDERS: Visit Provider Anesthesiology
DX: M51.16 Intervertebral disc disorders with radiculopathy, lumbar region (principal)
CPT/HCPCS: 99212; G0463

== ENCOUNTER 2021-04-01 14:34 | Day surgery (SDC) | payer BC, SELFPAY ==
[2021-04-01 14:55] VITALS: PULSE 72; RESP 18; TEMP 36.5; O2SAT 98
--- NOTE | 2021-04-01 15:20 | HMH.PMPROC ---
- Procedure Date: 04/01/21 Time: 15:20 Anesthesiologist:: Albino Lewis MD Complications:: None Pre-procedure Diagnosis:: Myofascial pain lumbar paraspinous muscles Post-procedure Diagnosis:: Same Indications for Procedure:: This patient is a pleasant 60-year-old white female who we have been treating for low back pain with lumbar radiculopathy symptoms and myofascial pain over the lumbar paraspinous muscles. She has increasing pain with trigger points identified throughout the lumbar paraspinous area. She is also has increasing low back pain with pain going down both legs. We will do bilateral lumbar paraspinous trigger point injections. We will also adjust her pump and increase her intrathecal Dilaudid infusion today. Procedure Details:: Trigger point injections x8 to lumbar paraspinous muscles Informed consent was obtained risk and benefits of the procedure were explained to the patient. Patient was taken the procedure room. The back was prepped using ChloraPrep. Trigger points were palpated marked. Each of these trigger points were injected with 3 mL bupivacaine 0.25% and Depo-Medrol 10 mg. We used a total of 80 mg Depo-Medrol for all 8 trigger points, 4 on each side. Patient tolerated procedure well with no complications. Analysis and interrogation with increase of intrathecal Dilaudid pain pump infusion Informed consent was obtained the risk and benefits of the procedure were explained to the patient. Patient was taken the procedure room. The pump was interrogated. Intrathecal Dilaudid infusion was increased to 0.6 mg/day. PTC boluses remained at 0.06 mg up to 4 times a day. Patient tolerated the procedure well with no complications. Plan and Disposition:: We will follow-up with her in 2 weeks. Will reevaluate symptoms at that time.
[2021-04-01 15:22] VITALS: BP 133/78; BP 133/89; PULSE 85; RESP 18; O2SAT 98
[2021-04-01 15:33] VITALS: BP 131/71; PULSE 80; RESP 18; O2SAT 93
== END 2021-04-01 15:34 | disposition home or self-care (01) ==
LOC: SC.PAINP 14:35
PROVIDERS: PCP Family Medicine; Visit Provider Anesthesiology
DX: M79.18 Myalgia, other site (principal); I10 Essential (primary) hypertension; K21.9 Gastro-esophageal reflux disease without esophagitis; F41.9 Anxiety disorder, unspecified; F32.9 Major depressive disorder, single episode, unspecified; Z88.5 Allergy status to narcotic agent; Z98.84 Bariatric surgery status; Z90.49 Acquired absence of other specified parts of digestive tract
CPT/HCPCS: 20552; J1030

== ENCOUNTER → 2021-04-15 11:40 | Outpatient (POV) | payer BC, SELFPAY ==
[2021-04-15 11:52] VITALS: BP 145/67; PULSE 72; RESP 20; O2SAT 95; BMI 38.0
--- NOTE | 2021-04-15 11:52 | HMH.PMPROC ---
- Procedure Date: 04/15/21 Time: 11:52 Anesthesiologist:: Albino Lewis MD Complications:: None Pre-procedure Diagnosis:: Degenerative disease of lumbar spine with lumbar radiculopathy symptoms Post-procedure Diagnosis:: Same Indications for Procedure:: Patient is a pleasant 60-year-old white female who we have been treating for low back pain with lumbar radiculopathy symptoms and myofascial pain of her lumbar paraspinous muscles. She did very well with her trigger point injections. She does have some increasing pain in her low back and down her legs. She is currently on intrathecal hydromorphone at 0.6 mg/day. We will increase her boluses to 0.08 mg up to 8 times a day. This will increase total daily dose to 0.64 mg/day. Overall she is doing well with her pump. Procedure Details:: Analysis and adjustment of intrathecal hydromorphone pain pump. Informed consent was obtained the risk and benefits of the procedure were explained to the patient. Patient was taken to the procedure room. The pump was interrogated. Intrathecal hydromorphone infusion was increased to 0.64 mg/day. Boluses were increased to 0.08 mg up to 8 times a day with a 3-hour lockout. Patient tolerated the procedure well with no complications. Plan and Disposition:: We will follow-up with her in 2 weeks. Will reevaluate her symptoms at that time.
== END ==
PROVIDERS: Visit Provider Anesthesiology
DX: M51.16 Intervertebral disc disorders with radiculopathy, lumbar region (principal); Z45.1 Encounter for adjustment and management of infusion pump
CPT/HCPCS: 62368

== ENCOUNTER → 2021-05-19 11:35 | Outpatient (POV) | payer BC, SELFPAY ==
--- NOTE | 2021-05-19 12:42 | HMH.PMPROC ---
- Procedure Date: 05/19/21 Time: 12:42 Anesthesiologist:: Mel Bhakta APRN Complications:: None Pre-procedure Diagnosis:: Degenerative disc disease lumbar spine with lumbar radiculopathy symptoms Post-procedure Diagnosis:: Same Indications for Procedure:: Patient is a 60-year-old white female who presents today for intrathecal pain pump adjustment. She is being treated for degenerative disc disease lumbar spine with lumbar radiculopathy symptoms of myofascial pain lumbar paraspinous muscles. Patient is currently on a dose of intrathecal therapy of hydromorphone at 0.64 mg/day. She would like an increase. We will increase her today to see if she gets relief. She denies any side effects to the medication her Mika and drug screens have been appropriate. Physical exam General: Alert and oriented x3, no acute distress, pleasant and cooperative, [on room air] Lungs: Respirations even and unlabored, symmetrical chest expansion Eyes: PERRL Musculoskeletal: Flexion and extension of [] lumbar spine somewhat guarded secondary to pain, deep tendon reflexes normal, strength in upper and lower extremities [5/5], [abnormal gait noted] Neurological: Speech clear, applications systems engineer equal, no gross sensory deficit Procedure Details:: Informed consent was obtained and the risk and benefits of the procedure were explained to the patient. Patient was taken to the procedure room where noninvasive monitoring was placed including noninvasive blood pressure cuff and pulse oximeter. Patient's pump was interrogated and was reprogrammed to Dilaudid at 0.76 mg/day. The patient tolerated the procedure well with no complications. Plan and Disposition:: We will follow up with the patient as needed. She has been instructed to contact clinic if she has any concerns before next appointment. The patient is a home refill patient. Patient has been instructed to contact the clinic with any concerns before the next appointment. Dr. Lewis has reviewed this note and agrees with this plan of care. This note was dictated using voice recognition software and make contain errors or omissions. Risks and benefits of the medication have been explained in detail to the patient. The patient has been advised to consult with his/her primary care provider and pharmacist regarding drug-drug interaction of medications currently prescribed.
== END ==
PROVIDERS: Visit Provider Clinical Nurse Specialist Family Health
DX: M51.16 Intervertebral disc disorders with radiculopathy, lumbar region (principal); Z45.1 Encounter for adjustment and management of infusion pump
CPT/HCPCS: 62368

== ENCOUNTER → 2021-06-09 11:32 | Outpatient (POV) | payer BC, SELFPAY ==
[2021-06-09 11:41] VITALS: BP 175/90; PULSE 81; RESP 18; O2SAT 95; BMI 43.8
--- NOTE | 2021-06-09 12:16 | P.PCN_ITS ---
- Procedure Date: 06/09/21 Time: 12:16 Anesthesiologist:: eMl Bhakta APRN Complications:: None Pre-procedure Diagnosis:: Degenerative disc disease lumbar spine with lumbar radiculopathy symptoms Post-procedure Diagnosis:: Same Indications for Procedure:: Patient is a pleasant 60-year-old white female who presents today for intrathecal pain pump adjustment. She has been treated for degenerative disc disease lumbar spine with lumbar radiculopathy symptoms and myofascial pain lumbar paraspinous muscles. She is currently on intrathecal therapy at 0.72 mg/day she would like an increase. She denies any side effects to the medication. The patient's Mika #[id number] has been reviewed and is appropriate. Drug screen is appropriate. She is also managed with gabapentin 600 mg 1 tablet p.o. 3 times daily. The patient says she is planning to undergo oral surgery and may have to take oral medications in the acute stage after her surgery. She says that the oral surgeon has been given our clinic information to contact us if he has any questions regarding medication management. Physical exam General: Alert and oriented x3, no acute distress, pleasant and cooperative, [on room air] Lungs: Respirations even and unlabored, symmetrical chest expansion Eyes: PERRL Musculoskeletal: Flexion and extension of [] lumbar spine somewhat guarded secondary to pain, deep tendon reflexes normal, strength in upper and lower extremities [5/5], [abnormal gait noted] Neurological: Speech clear, sales and marketing executive equal, no gross sensory deficit Procedure Details:: Informed consent was obtained and the risk and benefits of the procedure were explained to the patient. Patient was taken to the procedure room where noninvasive monitoring was placed including noninvasive blood pressure cuff and pulse oximeter. Patient's pump was interrogated and was reprogrammed to hydromorphone at 0.92 mg/day. The patient tolerated the procedure well with no complications. Plan and Disposition:: We will place the patient back at home refill. We will plan to see her back as needed. She will continue her gabapentin as prescribed by the clinic, 600 mg 1 tablet p.o. 3 times daily. Patient has been instructed to contact the clinic with any concerns before the next appointment. Dr. Lewis has reviewed this note and agrees with this plan of care. This note was dictated using voice recognition software and make contain errors or omissions. Risks and benefits of the medication have been explained in detail to the patient. The patient has been advised to consult with his/her primary care provider and pharmacist regarding drug-drug interaction of medications currently prescribed.
--- NOTE | 2021-06-21 10:46 | PC.NURSE ---
Nurse with Dr. Solis Hi, [facility] office called to report that patient had oral surgery and was prescribed Percocet for post operative pain.
== END ==
PROVIDERS: Visit Provider Clinical Nurse Specialist Family Health
DX: M51.16 Intervertebral disc disorders with radiculopathy, lumbar region (principal); Z45.1 Encounter for adjustment and management of infusion pump
CPT/HCPCS: 62368

== ENCOUNTER → 2021-08-12 09:28 | Outpatient (POV) | payer BC, SELFPAY ==
[2021-08-12 09:52] VITALS: BP 155/79; PULSE 74; RESP 20; TEMP 36.3; O2SAT 96; BMI 40.8
--- NOTE | 2021-08-12 10:11 | HMH.PMPROC ---
- Procedure Date: 08/12/21 Time: 10:11 Anesthesiologist:: Albino Lewis MD Complications:: None Pre-procedure Diagnosis:: Degenerative disc disease of lumbar spine with lumbar radiculopathy symptoms Post-procedure Diagnosis:: Same Indications for Procedure:: Patient is a pleasant 60-year-old white female who we are treating for low back pain with lumbar radiculopathy symptoms. She is doing well with her intrathecal infusion however she does have some increasing pain with increased activity. She is refilled by [facility]. We will increase her intrathecal hydromorphone infusion. They are planning on going to [place] next month for several months. We will follow-up with her either before she leaves for her trip or when she returns. Patient does have an antalgic gait. Motor strength of the lower extremities is 5/5. There is no gross sensory deficit. Procedure Details:: Analysis and reprogram of intrathecal pain pump Informed consent was obtained the risk and benefits of the procedure were explained the patient. Patient was taken the procedure room. The pump was interrogated. Intrathecal hydromorphone infusion was increased to 1.2 mg/day from 1 mg/day. Patient tolerated procedure well with no complications. Plan and Disposition:: Follow-up with this patient either before she leaves for her trip or after she returns. We will communicate our changes to [facility] for her home refill service.
== END ==
PROVIDERS: PCP Family Medicine; Visit Provider Anesthesiology
DX: M51.16 Intervertebral disc disorders with radiculopathy, lumbar region (principal); Z45.1 Encounter for adjustment and management of infusion pump
CPT/HCPCS: 62368

== ENCOUNTER → 2022-03-30 10:47 | Outpatient (POV) | payer BC, SELFPAY ==
[2022-03-30 11:48] VITALS: BP 164/83; PULSE 67; RESP 18; TEMP 36.6; O2SAT 95; BMI 34.4
--- NOTE | 2022-03-30 11:55 | P.PCN_ITS ---
- Procedure Date: 03/30/22 Time: 11:55 Anesthesiologist:: ELIER aLwton Complications:: None Pre-procedure Diagnosis:: Degenerative disc disease of lumbar spine with lumbar radiculopathy symptoms Post-procedure Diagnosis:: Same Indications for Procedure:: Patient is a pleasant 61-year-old female who presents today for 6-month follow- up and intrathecal pain pump reprogram]. The patient is being treated for degenerative disc disease of lumbar spine with lumbar radiculopathy symptoms. Patient is current being treated for Dilaudid 10 mg/mL at a rate of 1.32 mg/day. Denies any side effects from this medication. Denies any change in location and type of pain. Patient is wanting an adjustment today. Patient rates pain a 7 out of 10. Drug screen is appropriate. Mika [id number] with an active morphine equivalent of 0 has been reviewed and is appropriate. Physical exam General: Alert and oriented x3, no acute distress, pleasant and cooperative, [on room air] Lungs: Respirations even and unlabored, symmetrical chest expansion Eyes: PERRL Musculoskeletal: Flexion and extension of lumbar [spine] somewhat guarded secondary to pain, [antalgic gait noted] Neurological: Speech clear, no gross sensory deficit Procedure Details:: Informed consent was obtained and the risk and benefits of the procedure were explained to the patient. Patient was taken to the procedure room where noninvasive monitoring was placed including noninvasive blood pressure cuff and pulse oximeter. Patient's pump was interrogated and was reprogrammed to Dilau did 1.45 g/day. The patient tolerated the procedure well with no complications. Plan and Disposition:: We will follow-up with this patient in 6 months. We will refill the patient's gabapentin 600 mg 3 times a day and provide the patient with 5 refills. Patient has been complaining of bilateral hand pain related to osteoarthritis. We will refer the patient to [facility], in [place]. Patient has been instructed to contact the clinic with any concerns before the next appointment. Dr. Lewis has reviewed this note and agrees with this plan of care. This note was dictated using voice recognition software and make contain errors or omissions.
== END ==
PROVIDERS: Visit Provider Student in an Organized Health Care Education/Training Program
DX: M51.16 Intervertebral disc disorders with radiculopathy, lumbar region (principal); Z45.1 Encounter for adjustment and management of infusion pump
CPT/HCPCS: 62368; 99213; G0463

== ENCOUNTER → 2022-08-24 10:29 | Outpatient (POV) | payer BC, SELFPAY ==
[2022-08-24 11:59] VITALS: BP 154/88; PULSE 74; RESP 18; TEMP 36.2; O2SAT 94; BMI 33.6
--- NOTE | 2022-08-24 12:21 | EXP.PAIN.PRO ---
Procedure Date: 08/24/22 Time: 11:36 Anesthesiologist:: Violet Diaz APRN Complications:: None Pre-procedure Diagnosis:: Degenerative disc disease lumbar spine with lumbar radiculopathy symptoms Post-procedure Diagnosis:: Same Indications for Procedure:: Patient is a pleasant 61-year-old female who presents today for intrathecal pain pump adjustment and reprogram. The patient is being treated for [degenerative disc disease of lumbar spine with lumbar radiculopathy symptoms ]. Patient is currently being managed with Dilaudid 10 mg/mL with a daily dose of 1.9128 mg/day. Patient denies any side effects from this medication. Patient rates pain a 4 out of 10. Drug screen is appropriate. Mika [id number] has been reviewed and is appropriate. Physical exam General: Alert and oriented x3, no acute distress, pleasant and cooperative Lungs: Respirations even and unlabored, symmetrical chest expansion Eyes: PERRL Musculoskeletal: Flexion and extension of lumbar [spine] somewhat guarded secondary to pain, [antalgic gait noted] Neurological: Speech clear, no gross sensory deficit Procedure Details:: Informed consent was obtained and the risk and benefits of the procedure were explained to the patient. Patient was taken to the procedure room where noninvasive monitoring was placed including noninvasive blood pressure cuff and pulse oximeter. Patient's pump was interrogated and was reprogrammed to Dilaudid 10 mg/mL with a daily dose of 2.1 mg/day. The patient tolerated the procedure well with no complications. Plan and Disposition:: Patient continues to have significant low back pain that radiates into her bilateral lower extremities. I will order the patient a compounding cream at today's visit. We will see the patient back in the clinic at the next intrathecal refill. Patient has been instructed to contact the clinic with any concerns before the next appointment. Dr. Lewis has reviewed this note and agrees with this plan of care. This note was dictated using voice recognition software and make contain errors or omissions. -- It Is medically necessary for this patient to continue to have their intrathecal pump refilled at regular intervals. This patient had an intrathecal pain pump implanted after meeting criteria of chronic intractable pain for greater than 3 months and failing conservative treatments. Patient has committed and been compliant to the treatment plan and all planned follow up care. Since implantation of the intrathecal pain pump, the patient has had decreased pain and been more functional. Oral medications have been reduced including intake of oral opioids. Patient continues to do well with intrathecal therapy with decrease in pain symptoms and increase in functional status. Stopping intrathecal medications can lead to life threatening withdrawal, seizures, cardiac arrest, severe pain, and possible . Pumps that are not refilled at regular intervals can be damages and cause and need for replacement. We continually titrate dose and concentration to optimize pain relief and function. We are limited in concentration for certain drugs to safely deliver medications through the pump and stay within the recommendations from the Polyanalges[employer] Consensus Committee Guidelines. Depending on dose and concentration these pumps may need to be refilled sooner than 3 months as we titrate.
== END | disposition home or self-care (01) ==
PROVIDERS: Visit Provider Nurse Practitioner Family
DX: M51.16 Intervertebral disc disorders with radiculopathy, lumbar region (principal)
CPT/HCPCS: 62368; 99213; G0463